=== PATIENT | male | born 1945 | race Caucasian/White ===

== ENCOUNTER 2016-10-29 00:43 | Inpatient (IN) | payer MEDICARE, BC ==
[2016-10-29] MEDS ORDERED: Furosemide 40 MG/4 ML VIAL IVPUSH ONE (01:40)
[2016-10-29] MEDS ORDERED: Sodium Chloride 0.9% 10 ML Syringe FLUSH PRN ×2 (01:40→09:23)
--- NOTE | 2016-10-29 01:45 | EDM.PDOC ---
[id number]: SOB LEAKING LEGS Time Seen by Provider: 10/29/16 01:43 Source: Reports: Patient History Limitations: Reports: No limitations - History of Present Illness INITIAL COMMENTS - FREE TEXT/NARRATIVE: Pt has noted increased sob and marked swelling and weeping in both legs the left being worse than the right. Timing/Duration: Reports: Getting worse Severity: severe Location, General: Reports: chest, abdomen, lower extremity, left, lower extremity, right Associated Symptoms: Reports: shortness of breath - Related Data Allergies/ADRs: Allergies Allergy/AdvReac Type Severity Reaction Status Date / Time UNA Inhibitors Allergy Rash Verified 10/29/16 09:26 Home Meds: Home Meds Losartan [Cozaar] 100 mg PO BID 12/09/14 [History] EPINEPHrine [Epipen 2-Merrick] 0.3 mg IM DAILY PRN 07/31/15 [History] atorvaSTATin [Lipitor] 80 mg PO BEDTIME 07/31/15 [History] Pseudoephedrine HCl [Sudafed] 30 mg PO ASDIRECTED 12/30/15 [History] Fluticasone Propionate [Flonase] 2 spray IN DAILY 10/29/16 [History] Insulin Aspart [NovoLOG] 12 unit SQ ACLUNCH 10/29/16 [History] Insulin Aspart [NovoLOG] 15 unit SQ ACDINNER 10/29/16 [History] Insulin Aspart [Novolog] 12 unit SQ ACBREAKFAST 10/29/16 [History] Insulin Detemir [Levemir] 57 unit SUBCUT BEDTIME 10/29/16 [History] Metoprolol Tartrate 25 mg PO BID 10/29/16 [History] Past Medical History HEENT History: Reports: Cataract, Impaired vision, Sinusitis Cardiovascular History: Reports: Bypass, CAD, High cholesterol, Hypertension Gastrointestinal History: Reports: Diverticulosis, GERD Musculoskeletal History: Reports: Fracture Neurological History: Reports: Headaches, chronic Endocrine/Metabolic History: Reports: Diabetes, type II - Infectious Disease History Infectious Disease History: Reports: Chicken pox - Past Surgical History HEENT Surgical History: Reports: Naso-sinus surgery, Other (see below) Other HEENT Surgeries/Procedures: diveated septum Cardiovascular Surgical History: Reports: Coronary artery bypass GI Surgical History: Reports: Colonoscopy Social & Family History - Tobacco Use Smoking Status *Q: Never Smoker Second Hand Smoke Exposure: No - Caffeine Use Caffeine Use: Reports: Coffee - Alcohol Use Days Per Week of Alcohol Use: 7 Number of Drinks Per Day: 1 Total Drinks Per Week: 7 - Recreational Drug Use Recreational Drug Use: No - Living Situation & Occupation Living situation: Reports: , with spouse ED ROS GENERAL - Review of Systems Review Of Systems: See Below Constitutional: Reports: no symptoms HEENT: Reports: No symptoms Respiratory: Reports: Shortness of Breath, Cough Cardiovascular: Reports: Other (He notes a irregular heart beat. ) Endocrine: Reports: no symptoms GI/Abdominal: Reports: No symptoms, Other ( Pt feels tight. ) : Reports: no symptoms Musculoskeletal: Reports: no symptoms Skin: Reports: other ( legs have marked swelling. They are weeoing and there are some open lesions. ) Neurological: Reports: No Symptoms Psychiatric: Reports: No symptoms ED EXAM, GENERAL - Physical Exam Exam: See Below Free Text/Narrative:: Pt has marked leg swelling and weeping. He has not had chest pain, He is quite sob with activity. Exam Limited By: No limitations General Appearance: alert, moderate distress Ears: normal TMs Nose: normal inspection Throat/Mouth: Normal inspection Head: atraumatic Neck: normal inspection Respiratory/Chest: decreased breath sounds, rales Cardiovascular: regular rate, rhythm, other (pt does have frequent ectopics but this is not new for him. ) GI/Abdominal: distended, other (Pt is not tender but his abdoman is definitely very tight. ) (Male) Exam: Deferred Rectal (Males) Exam: Deferred Back Exam: normal inspection Extremities: pedal edema, other ( They are swollen very tight and are weeping. ) Neurological: alert, oriented, normal cognition Psychiatric: normal affect Course - Vital Signs Last Recorded V/S: Last Vital Signs Temp 36.8 C 10/31/16 03:00 Pulse 69 10/31/16 03:00 Resp 16 10/31/16 03:00 BP 127/91 H 10/31/16 03:00 Pulse Ox 92 L 10/31/16 03:00 - Orders/Labs/Meds Orders: Active Orders 24 hr Category Date Time Status GLUCOSE POC LAB TO COLLECT [POC] QIDACANDBED Lab 10/31/16 07:30 Ordered GLUCOSE POC LAB TO COLLECT [POC] QIDACANDBED Lab 10/31/16 11:30 Ordered GLUCOSE POC LAB TO COLLECT [POC] QIDACANDBED Lab 10/31/16 16:30 Ordered GLUCOSE POC LAB TO COLLECT [POC] QIDACANDBED Lab 10/31/16 21:00 Ordered GLUCOSE POC LAB TO COLLECT [POC] QIDACANDBED Lab 11/01/16 07:30 Ordered GLUCOSE POC LAB TO COLLECT [POC] QIDACANDBED Lab 11/01/16 11:30 Ordered GLUCOSE POC LAB TO COLLECT [POC] QIDACANDBED Lab 11/01/16 16:30 Ordered GLUCOSE POC LAB TO COLLECT [POC] QIDACANDBED Lab 11/01/16 21:00 Ordered GLUCOSE POC LAB TO COLLECT [POC] QIDACANDBED Lab 11/02/16 07:30 Ordered GLUCOSE POC LAB TO COLLECT [POC] QIDACANDBED Lab 11/02/16 11:30 Ordered GLUCOSE POC LAB TO COLLECT [POC] QIDACANDBED Lab 11/02/16 16:30 Ordered GLUCOSE POC LAB TO COLLECT [POC] QIDACANDBED Lab 11/02/16 21:00 Ordered GLUCOSE POC LAB TO COLLECT [POC] QIDACANDBED Lab 11/03/16 07:30 Ordered GLUCOSE POC LAB TO COLLECT [POC] QIDACANDBED Lab 11/03/16 11:30 Ordered GLUCOSE POC LAB TO COLLECT [POC] QIDACANDBED Lab 11/03/16 16:30 Ordered GLUCOSE POC LAB TO COLLECT [POC] QIDACANDBED Lab 11/03/16 21:00 Ordered GLUCOSE POC LAB TO COLLECT [POC] QIDACANDBED Lab 11/04/16 07:30 Ordered GLUCOSE POC LAB TO COLLECT [POC] QIDACANDBED Lab 11/04/16 11:30 Ordered GLUCOSE POC LAB TO COLLECT [POC] QIDACANDBED Lab 11/04/16 16:30 Ordered GLUCOSE POC LAB TO COLLECT [POC] QIDACANDBED Lab 11/04/16 21:00 Ordered GLUCOSE POC LAB TO COLLECT [POC] QIDACANDBED Lab 11/05/16 07:30 Ordered GLUCOSE POC LAB TO COLLECT [POC] QIDACANDBED Lab 11/05/16 11:30 Ordered GLUCOSE POC LAB TO COLLECT [POC] QIDACANDBED Lab 11/05/16 16:30 Ordered GLUCOSE POC LAB TO COLLECT [POC] QIDACANDBED Lab 11/05/16 21:00 Ordered GLUCOSE POC LAB TO COLLECT [POC] QIDACANDBED Lab 11/06/16 07:30 Ordered GLUCOSE POC LAB TO COLLECT [POC] QIDACANDBED Lab 11/06/16 11:30 Ordered GLUCOSE POC LAB TO COLLECT [POC] QIDACANDBED Lab 11/06/16 16:30 Ordered GLUCOSE POC LAB TO COLLECT [POC] QIDACANDBED Lab 11/06/16 21:00 Ordered GLUCOSE POC LAB TO COLLECT [POC] QIDACANDBED Lab 11/07/16 07:30 Ordered GLUCOSE POC LAB TO COLLECT [POC] QIDACANDBED Lab 11/07/16 11:30 Ordered GLUCOSE POC LAB TO COLLECT [POC] QIDACANDBED Lab 11/07/16 16:30 Ordered GLUCOSE POC LAB TO COLLECT [POC] QIDACANDBED Lab 11/07/16 21:00 Ordered GLUCOSE POC LAB TO COLLECT [POC] QIDACANDBED Lab 11/08/16 07:30 Ordered GLUCOSE POC LAB TO COLLECT [POC] QIDACANDBED Lab 11/08/16 11:30 Ordered GLUCOSE POC LAB TO COLLECT [POC] QIDACANDBED Lab 11/08/16 16:30 Ordered GLUCOSE POC LAB TO COLLECT [POC] QIDACANDBED Lab 11/08/16 21:00 Ordered GLUCOSE POC LAB TO COLLECT [POC] QIDACANDBED Lab 11/09/16 07:30 Ordered Insulin Aspart [NovoLOG] Med 10/30/16 07:30 Active 12 unit SUBCUT ACBREAKFAST Medication Orders Acetaminophen (Tylenol) 650 mg PO Q4H PRN PRN Reason: Pain (Mild 1-3)/fever Last Admin: 10/31/16 06:57 Dose: 650 mg Atorvastatin Calcium (Lipitor) 80 mg PO BEDTIME [facility] Last Admin: 10/30/16 20:59 Dose: 80 mg Admin: 10/29/16 20:52 Dose: 80 mg Dextrose (Glutose 15) 15 gm PO ONETIME PRN PRN Reason: Hypoglycemia Dextrose/Water (Dextrose 50% In Water) 50 ml IV ONETIME PRN PRN Reason: Hypoglycemia Docusate Sodium (Colace) 100 mg PO BID PRN PRN Reason: Constipation Enoxaparin Sodium (Lovenox) 40 mg SUBCUT DAILY [facility] Last Admin: 10/30/16 08:06 Dose: 40 mg Admin: 10/29/16 09:49 Dose: 40 mg Fluticasone Propionate (Flonase) 0 gm RADHA DAILY [facility] Last Admin: 10/30/16 08:04 Dose: 2 spray Admin: 10/29/16 09:53 Dose: 1 spray Furosemide (Lasix) 20 mg IVPUSH Q8H [facility] Last Admin: 10/31/16 02:05 Dose: 20 mg Admin: 10/30/16 17:14 Dose: 20 mg Admin: 10/30/16 10:02 Dose: 20 mg Admin: 10/30/16 02:37 Dose: 20 mg Admin: 10/29/16 17:47 Dose: 20 mg Admin: 10/29/16 09:55 Dose: 20 mg Insulin Aspart (Novolog) 12 unit SUBCUT ACLUNCH [facility] Last Admin: 10/30/16 11:42 Dose: 12 units Admin: 10/29/16 12:03 Dose: 12 units Insulin Aspart (Novolog) 15 unit SUBCUT ACDINNER [facility] Last Admin: 10/30/16 17:11 Dose: 15 units Admin: 10/29/16 17:48 Dose: 15 units Insulin Aspart (Novolog) 12 unit SUBCUT ACBREAKFAST [facility] Last Admin: 10/30/16 08:00 Dose: 12 units Insulin Aspart (Novolog) 0 unit SUBCUT ASDIRECTED [facility] PRN Reason: Protocol Insulin Detemir (Levemir) 57 unit SUBCUT BEDTIME [facility] Last Admin: 10/30/16 20:57 Dose: 57 unit Admin: 10/29/16 20:53 Dose: 57 unit Loperamide HCl (Imodium) 4 mg PO DAILY PRN PRN Reason: LOOSE STOOL Last Admin: 10/30/16 15:28 Dose: 4 mg Losartan Potassium (Cozaar) 100 mg PO BID [facility] Last Admin: 10/30/16 20:58 Dose: 100 mg Admin: 10/30/16 08:04 Dose: 100 mg Admin: 10/29/16 20:50 Dose: 100 mg Admin: 10/29/16 09:55 Dose: 100 mg Magnesium Hydroxide (Milk Of Magnesia) 30 ml PO Q12H PRN PRN Reason: Constipation Magnesium Oxide (Magnesium Oxide) 400 mg PO BID [facility] Last Admin: 10/30/16 21:00 Dose: 400 mg Admin: 10/30/16 08:05 Dose: 400 mg Admin: 10/29/16 20:52 Dose: 400 mg Admin: 10/29/16 09:50 Dose: 400 mg Metoprolol Tartrate (Lopressor) 25 mg PO BID [facility] Last Admin: 10/30/16 20:59 Dose: 25 mg Admin: 10/30/16 08:06 Dose: 25 mg Admin: 10/29/16 20:52 Dose: 25 mg Admin: 10/29/16 09:50 Dose: 25 mg Ondansetron HCl (Zofran) 4 mg IV Q4H PRN PRN Reason: Nausea/Vomiting Oxycodone HCl (Oxycodone) 5 mg PO Q4H PRN PRN Reason: Pain (moderate 4-6) Polyethylene Glycol (Miralax) 17 gm PO DAILY PRN PRN Reason: Constipation Potassium Chloride (Klor-Con M20) 40 meq PO BID [facility] Last Admin: 10/30/16 20:59 Dose: 40 meq Admin: 10/30/16 08:05 Dose: 40 meq Admin: 10/29/16 20:51 Dose: 40 meq Admin: 10/29/16 11:19 Dose: 40 meq Sodium Chloride (Saline Flush) 10 ml FLUSH ASDIRECTED PRN PRN Reason: Keep Vein Open Last Admin: 10/31/16 02:05 Dose: 10 ml Labs: Laboratory Tests 10/29/16 10/29/16 10/29/16 Range/Units 01:37 01:37 01:38 WBC 6.9 (4.5-11.0) K/uL RBC 5.12 (4.30-5.90) M/uL Hgb 13.9 (12.0-15.0) g/dL Hct 43.8 (40.0-54.0) % MCV 86 (80-98) fL MCH 27 (27-31) pg MCHC 32 (32-36) % Plt Count 183 (150-400) K/uL Neut % (Auto) 66 (36-66) % Lymph % (Auto) 18 L (24-44) % Kendall % (Auto) 12 H (2-6) % Eos % (Auto) 3 (2-4) % Baso % (Auto) 1 (0-1) % Sodium 146 (140-148) mmol/L Potassium 3.8 (3.6-5.2) mmol/L Chloride 110 H (100-108) mmol/L Carbon Dioxide 29 (21-32) mmol/L Anion Gap 10.8 (5.0-14.0) mmol/L BUN 22 H (7-18) mg/dL Creatinine 1.2 (0.8-1.3) mg/dL Est Cr Clr Drug Dosing 55.42 mL/min Estimated GFR (MDRD) 60 (>60) Glucose 83 (74-106) mg/dL Calcium 8.1 L (8.5-10.1) mg/dL Total Bilirubin 1.7 H (0.2-1.0) mg/dL AST 52 H D (15-37) U/L ALT 51 (12-78) U/L Alkaline Phosphatase 93 (46-116) U/L Creatine Kinase 148 (39-308) U/L [id number] Pept 2531 H (5-125) pg/mL Total Protein 6.8 (6.4-8.2) g/dL Albumin 2.6 L (3.4-5.0) g/dL Globulin 4.2 H (2.3-3.5) g/dL Albumin/Globulin Ratio 0.6 L (1.2-2.2) Urine Color Urine Appearance Urine pH (4.5-8.0) Ur Specific Alfred (1.008-1.030) Urine Protein (NEGATIVE) mg/dL Urine Glucose (UA) (NEGATIVE) mg/dL Urine Ketones (NEGATIVE) mg/dL Urine Occult Blood (NEGATIVE) Urine Nitrite (NEGAITVE) Urine Bilirubin (NEGATIVE) Urine Urobilinogen (NORMAL) mg/dL Ur Leukocyte Esterase (NEGATIVE) Urine RBC (0-5) Urine WBC (0-5) Ur Epithelial Cells Amorphous Sediment Urine Bacteria Urine Mucus 10/29/16 10/29/16 Range/Units 02:22 06:22 WBC (4.5-11.0) K/uL RBC (4.30-5.90) M/uL Hgb (12.0-15.0) g/dL Hct (40.0-54.0) % MCV (80-98) fL MCH (27-31) pg MCHC (32-36) % Plt Count (150-400) K/uL Neut % (Auto) (36-66) % Lymph % (Auto) (24-44) % Kendall % (Auto) (2-6) % Eos % (Auto) (2-4) % Baso % (Auto) (0-1) % Sodium (140-148) mmol/L Potassium 3.4 L (3.6-5.2) mmol/L Chloride (100-108) mmol/L Carbon Dioxide (21-32) mmol/L Anion Gap (5.0-14.0) mmol/L BUN (7-18) mg/dL Creatinine (0.8-1.3) mg/dL Est Cr Clr Drug Dosing mL/min Estimated GFR (MDRD) (>60) Glucose (74-106) mg/dL Calcium (8.5-10.1) mg/dL Total Bilirubin (0.2-1.0) mg/dL AST (15-37) U/L ALT (12-78) U/L Alkaline Phosphatase (46-116) U/L Creatine Kinase (39-308) U/L [id number] Pept (5-125) pg/mL Total Protein (6.4-8.2) g/dL Albumin (3.4-5.0) g/dL Globulin (2.3-3.5) g/dL Albumin/Globulin Ratio (1.2-2.2) Urine Color Yellow Urine Appearance Clear Urine pH 7.0 (4.5-8.0) Ur Specific Alfred 1.010 (1.008-1.030) Urine Protein Negative (NEGATIVE) mg/dL Urine Glucose (UA) Normal (NEGATIVE) mg/dL Urine Ketones Negative (NEGATIVE) mg/dL Urine Occult Blood Negative (NEGATIVE) Urine Nitrite Negative (NEGAITVE) Urine Bilirubin Negative (NEGATIVE) Urine Urobilinogen Normal (NORMAL) mg/dL Ur Leukocyte Esterase Negative (NEGATIVE) Urine RBC 0-5 (0-5) Urine WBC 0-5 (0-5) Ur Epithelial Cells Not seen Amorphous Sediment Not seen Urine Bacteria Rare Urine Mucus Not seen Meds: Medications Generic Name Dose Route Start Last Admin Trade Name Freq PRN Reason Stop Dose Admin Acetaminophen 650 mg 10/29/16 09:23 10/31/16 06:57 Tylenol PO 650 mg Q4H PRN Administration Pain (Mild 1-3)/fever Atorvastatin Calcium 80 mg 10/29/16 21:00 10/30/16 20:59 Lipitor PO 80 mg BEDTIME [facility] Administration Dextrose 15 gm 10/29/16 09:23 Glutose 15 PO ONETIME PRN Hypoglycemia Dextrose/Water 50 ml 10/29/16 09:23 Dextrose 50% In Water IV ONETIME PRN Hypoglycemia Docusate Sodium 100 mg 10/29/16 09:23 Colace PO BID PRN Constipation Enoxaparin Sodium 40 mg 10/29/16 10:00 10/30/16 08:06 Lovenox SUBCUT 40 mg DAILY [facility] Administration Fluticasone Propionate 0 gm 10/29/16 09:23 10/30/16 08:04 Flonase RADHA 2 spray DAILY [facility] Administration Furosemide 20 mg 10/29/16 10:00 10/31/16 02:05 Lasix IVPUSH 20 mg Q8H [facility] Administration Insulin Aspart 12 unit 10/29/16 11:00 10/30/16 11:42 Novolog SUBCUT 12 units ACLUNCH [facility] Administration Insulin Aspart 15 unit 10/29/16 16:00 10/30/16 17:11 Novolog SUBCUT 15 units ACDINNER [facility] Administration Insulin Aspart 12 unit 10/30/16 07:30 10/30/16 08:00 Novolog SUBCUT 12 units ACBREAKFAST [facility] Administration Insulin Aspart 0 unit 10/29/16 09:23 Novolog SUBCUT ASDIRECTED [facility] Protocol Insulin Detemir 57 unit 10/29/16 21:00 10/30/16 20:57 Levemir SUBCUT 57 unit BEDTIME [facility] Administration Loperamide HCl 4 mg 10/30/16 15:00 10/30/16 15:28 Imodium PO 4 mg DAILY PRN Administration LOOSE STOOL Losartan Potassium 100 mg 10/29/16 09:23 10/30/16 20:58 Cozaar PO 100 mg BID [facility] Administration Magnesium Hydroxide 30 ml 10/29/16 09:23 Milk Of Magnesia PO Q12H PRN Constipation Magnesium Oxide 400 mg 10/29/16 09:23 10/30/16 21:00 Magnesium Oxide PO 400 mg BID [facility] Administration Metoprolol Tartrate 25 mg 10/29/16 10:00 10/30/16 20:59 Lopressor PO 25 mg BID [facility] Administration Ondansetron HCl 4 mg 10/29/16 09:23 Zofran IV Q4H PRN Nausea/Vomiting Oxycodone HCl 5 mg 10/29/16 09:23 Oxycodone PO Q4H PRN Pain (moderate 4-6) Polyethylene Glycol 17 gm 10/29/16 09:23 Miralax PO DAILY PRN Constipation Potassium Chloride 40 meq 10/29/16 09:23 10/30/16 20:59 Klor-Con M20 PO 40 meq BID [facility] Administration Sodium Chloride 10 ml 10/29/16 09:23 10/31/16 02:05 Saline Flush FLUSH 10 ml ASDIRECTED PRN Administration Keep Vein Open Discontinued Medications Generic Name Dose Route Start Last Admin Trade Name Freq PRN Reason Stop Dose Admin Furosemide 60 mg 10/29/16 01:40 10/29/16 01:49 Lasix IVPUSH 10/29/16 01:41 60 mg ONETIME ONE Administration Potassium Chloride 20 meq 10/29/16 06:10 10/29/16 06:18 Klor-Con M20 PO 10/29/16 06:11 20 meq ONETIME ONE Administration Potassium Chloride 40 meq 10/29/16 09:30 10/29/16 09:51 Klor-Con M20 PO 10/29/16 09:31 40 meq ONETIME ONE Administration Sodium Chloride 10 ml 10/29/16 01:40 10/29/16 01:56 Saline Flush FLUSH 10 ml ASDIRECTED PRN Administration Keep Vein Open - Re-Assessments/Exams Free Text/Narrative Re-Assessment/Exam: 10/29/16 02:49 pt has an elevated bnp . His liver enzymes are up. chest xray show a markedly enlarged heart in chf. 10/29/16 06:36 pt was given 60 mg of lasix and has put out 4600 cc of fluid. His k is being checked at this time and he was given kcl 20meq po. Departure - Departure Time of Disposition: 06:37 Disposition: Admitted As Inpatient 67 Condition: fair Clinical Impression: CHF (congestive heart failure), Cardiomegaly, Stasis dermatitis of both legs
[2016-10-29] MEDS ORDERED: Potassium Chloride 20 MEQ Tab.ER PO ONE ×2 (06:10→09:30)
--- NOTE | 2016-10-29 08:55 | CR ---
Chest 1V Frontal HISTORY: sob COMPARISON: 01/14/2011 FINDINGS: Portable chest, 0202 hours. There are possible infiltrates and consolidation lingular segment left upper lobe partially silhouet ting the left heart border. Remainder the chest is clear. There is generalized cardiomegaly. Heart s ize appears increased in the interval. Old median sternotomy changes and mediastinal surgical clips are again noted. Superior pulmonary vasculature is borderline prominent. No pleural fluid or interst itial edema is seen. Remainder the chest is stable. IMPRESSION: 1. Possible infiltrate left lingula partially silhouetting the left heart border. Recommend clinical correlation for possible pneumonia. 2. Cardiomegaly with borderline vascular redistribution. I cannot completely exclude early CHF. No i nterstitial edema or pleural fluid can be seen. 3. Old median sternotomy changes are noted.
[2016-10-29] MEDS ORDERED: Docusate Sodium 100 MG Cap PO PRN (09:23)
[2016-10-29] MEDS ORDERED: Insulin Aspart 100 Units/ML 3 ML Pen SUBCUT SCH (09:23)
[2016-10-29] MEDS ORDERED: Polyethylene Glycol 3350 Powder 17 GM Packet PO PRN (09:23)
[2016-10-29] MEDS ORDERED: oxyCODONE 5 MG Tab PO PRN (09:23)
[2016-10-29] MEDS ORDERED: Magnesium Hydroxide 400 MG/5 ML Susp 30 ML Cup PO PRN (09:23)
[2016-10-29] MEDS ORDERED: 50% Dextrose in Water 50 ML Syringe IV PRN (09:23)
[2016-10-29] MEDS ORDERED: Acetaminophen 325 MG Tab PO PRN (09:23)
[2016-10-29] MEDS ORDERED: Metoprolol Succinate 50 MG Tab.ER PO SCH (09:23)
[2016-10-29] MEDS ORDERED: Ondansetron 4 MG/2 ML SDV IV PRN (09:23)
[2016-10-29] MEDS ORDERED: Glucose Gel 15 GM in 37.5 GM Tube PO PRN (09:23)
[2016-10-29] MEDS: Enoxaparin 40 MG/0.4 ML Syringe SUBCUT SCH (09:49)
[2016-10-29] MEDS: Magnesium Oxide 400 MG Tab PO SCH ×2 (09:50→20:52)
[2016-10-29] MEDS: Metoprolol Tartrate 25 MG Tab PO SCH ×2 (09:50→20:52)
[2016-10-29] MEDS: Fluticasone Propionate Nasal Spray 16 GM Bottle NAS SCH (09:53)
[2016-10-29] MEDS: Losartan 50 MG Tab PO SCH ×2 (09:55→20:50)
[2016-10-29] MEDS: Furosemide 20 MG/2 ML VIAL IVPUSH SCH ×2 (09:55→17:47)
[2016-10-29] MEDS: Potassium Chloride 20 MEQ Tab.ER PO SCH ×2 (11:19→20:51)
[2016-10-29] MEDS: Insulin Aspart 100 Units/ML 3 ML Pen SUBCUT SCH ×2 (12:03→17:48)
--- NOTE | 2016-10-29 12:28 | PCM.HP ---
H&P History of Present Illness - General Date of Service: 10/29/16 Source of Information: Patient, Family, Old records, Provider, RN notes reviewed History Limitations: Reports: No limitations - History of Present Illness Initial Comments - Free Text/Narative: Mr. Gama is a 71-year-old gentleman who is admitted through the emergency department for further evaluation and management of severe anasarca. He reports a progressive development of peripheral edema over the past 2 months, extending up into his lower back and lower abdominal wall. He estimates that is weight is up 40-50 pounds from baseline. He does have a known history of coronary artery disease, but denies a history of congestive heart failure. Past week has become progressively more short of breath and on evaluation earlier this morning in the emergency department was found to have evidence of pulmonary edema on chest x-ray. Laboratory studies show evidence of chronic kidney disease stage III. - Related Data Allergies/Adverse Reactions: Allergies Allergy/AdvReac Type Severity Reaction Status Date / Time UNA Inhibitors Allergy Rash Verified 10/29/16 09:26 Home Medications: Home Meds Losartan [Cozaar] 100 mg PO BID 12/09/14 [History] EPINEPHrine [Epipen 2-Merrick] 0.3 mg IM DAILY PRN 07/31/15 [History] atorvaSTATin [Lipitor] 80 mg PO BEDTIME 07/31/15 [History] Pseudoephedrine HCl [Sudafed] 30 mg PO ASDIRECTED 12/30/15 [History] Fluticasone Propionate [Flonase] 2 spray IN DAILY 10/29/16 [History] Insulin Aspart [NovoLOG] 12 unit SQ ACLUNCH 10/29/16 [History] Insulin Aspart [NovoLOG] 15 unit SQ ACDINNER 10/29/16 [History] Insulin Aspart [Novolog] 12 unit SQ ACBREAKFAST 10/29/16 [History] Insulin Detemir [Levemir] 57 unit SUBCUT BEDTIME 10/29/16 [History] Metoprolol Tartrate 25 mg PO BID 10/29/16 [History] Past Medical History HEENT History: Reports: Cataract, Impaired vision, Sinusitis Cardiovascular History: Reports: Bypass, CAD, High cholesterol, Hypertension Gastrointestinal History: Reports: Diverticulosis, GERD Musculoskeletal History: Reports: Fracture Neurological History: Reports: Headaches, chronic Endocrine/Metabolic History: Reports: Diabetes, type II - Infectious Disease History Infectious Disease History: Reports: Chicken pox - Past Surgical History HEENT Surgical History: Reports: Naso-sinus surgery, Other (see below) Other HEENT Surgeries/Procedures: diveated septum Cardiovascular Surgical History: Reports: Coronary artery bypass GI Surgical History: Reports: Colonoscopy Social & Family History - Tobacco Use Smoking Status *Q: Never Smoker Second Hand Smoke Exposure: No - Caffeine Use Caffeine Use: Reports: Coffee, Soda - Alcohol Use Days Per Week of Alcohol Use: 1 Number of Drinks Per Day: 1 Total Drinks Per Week: 1 - Recreational Drug Use Recreational Drug Use: No - Living Situation & Occupation Living situation: Reports: , with spouse H&P Review of Systems - Review of Systems: Review Of Systems: See Below General: Reports: weakness. Denies: fever, chills HEENT: Reports: no symptoms Pulmonary: Reports: Shortness of Breath. Denies: Wheezing, Pleuritic Chest Pain , Cough, Sputum, Hemoptysis Cardiovascular: Reports: dyspnea on exertion, orthopnea, PND, edema. Denies: chest pain, palpitations, syncope Gastrointestinal: Reports: No symptoms Genitourinary: Reports: no symptoms Musculoskeletal: Reports: no symptoms Skin: Reports: no symptoms Psychiatric: Reports: no symptoms Neurological: Reports: No Symptoms Hematologic/Lymphatic: Reports: no symptoms Immunologic: Reports: no symptoms Exam - Exam Exam: See Below - Vital Signs Vital Signs: Last Vital Signs Temp 98.2 F 10/29/16 09:23 Pulse 73 10/29/16 09:50 Resp 18 10/29/16 09:23 BP 153/82 H 10/29/16 09:55 Pulse Ox 93 L 10/29/16 09:23 Weight: 259 lb 11.272 oz - Exam Quality Assessment: supplemental oxygen, DVT prophylaxis HEENT: Conjunctiva clear, EOMI, Hearing intact, Mucosa moist & pink, Nares patent, Normal nasal septum, Posterior pharynx clear, Pupils equal, Pupils reactive Neck: supple, trachea midline, +2 carotid pulse wo bruit Lungs: Clear to auscultation, Normal respiratory effort Cardiovascular: regular rate, regular rhythm, normal S1, normal S2. No: irregular rhythm, bradycardia, tachycardia, systolic murmur, diastolic murmur Abdomen: normal bowel sounds, soft Back Exam: normal inspection, full range of motion Extremities: edema Skin: warm, dry, intact Neurological: cranial nerves intact, strength equal bilateral, normal speech, normal tone, focal deficit. No: sensation intact Neuro Extensive - Mental Status: alert, oriented x3, normal mood/affect, normal cognition, memory intact - Patient Data Result Diagrams: 10/29/16 01:37 10/29/16 17:58 *Q Meaningful Use (ADM) - VTE *Q VTE Criteria *Q: - VTE Risk Assess *Q Each Risk Factor Represents 1 Point: Obesity (BMI greater than 30) Total Score 1 Point Risk Factors: 1 Each Risk Factor Represents 2 Points: Age 60 - 74 Years Total Score 2 Point Risk Factors: 2 Each Risk Factor Represents 3 Points: None Total Score 3 Point Risk Factors: 0 Each Risk Factor Represents 5 Points: None Total Score 5 Point Risk Factors: 0 Venous Thromboembolism Risk Factor Score *Q: 3 - Stroke *Q Stroke Criteria *Q: - AMI *Q AMI Criteria *Q: Problem List Initiated/Reviewed/Updated: Yes Orders Last 24hrs: Active Orders 24 hr Category Date Time Status Metoprolol Tartrate [Lopressor] Med 10/29/16 10:00 Active 25 mg PO BID Medication Orders Acetaminophen (Tylenol) 650 mg PO Q4H PRN PRN Reason: Pain (Mild 1-3)/fever Atorvastatin Calcium (Lipitor) 80 mg PO BEDTIME [facility] Dextrose (Glutose 15) 15 gm PO ONETIME PRN PRN Reason: Hypoglycemia Dextrose/Water (Dextrose 50% In Water) 50 ml IV ONETIME PRN PRN Reason: Hypoglycemia Docusate Sodium (Colace) 100 mg PO BID PRN PRN Reason: Constipation Enoxaparin Sodium (Lovenox) 40 mg SUBCUT DAILY [facility] Last Admin: 10/29/16 09:49 Dose: 40 mg Fluticasone Propionate (Flonase) 0 gm RADHA DAILY [facility] Last Admin: 10/29/16 09:53 Dose: 1 spray Furosemide (Lasix) 20 mg IVPUSH Q8H [facility] Last Admin: 10/29/16 09:55 Dose: 20 mg Insulin Aspart (Novolog) 12 unit SUBCUT ACLUNCH [facility] Last Admin: 10/29/16 12:03 Dose: 12 units Insulin Aspart (Novolog) 15 unit SUBCUT ACDINNER [facility] Insulin Aspart (Novolog) 12 unit SUBCUT ACBREAKFAST [facility] Insulin Aspart (Novolog) 0 unit SUBCUT ASDIRECTED [facility] PRN Reason: Protocol Insulin Detemir (Levemir) 57 unit SUBCUT BEDTIME [facility] Losartan Potassium (Cozaar) 100 mg PO BID [facility] Last Admin: 10/29/16 09:55 Dose: 100 mg Magnesium Hydroxide (Milk Of Magnesia) 30 ml PO Q12H PRN PRN Reason: Constipation Magnesium Oxide (Magnesium Oxide) 400 mg PO BID [facility] Last Admin: 10/29/16 09:50 Dose: 400 mg Metoprolol Tartrate (Lopressor) 25 mg PO BID [facility] Last Admin: 10/29/16 09:50 Dose: 25 mg Ondansetron HCl (Zofran) 4 mg IV Q4H PRN PRN Reason: Nausea/Vomiting Oxycodone HCl (Oxycodone) 5 mg PO Q4H PRN PRN Reason: Pain (moderate 4-6) Polyethylene Glycol (Miralax) 17 gm PO DAILY PRN PRN Reason: Constipation Potassium Chloride (Klor-Con M20) 40 meq PO BID [facility] Last Admin: 10/29/16 11:19 Dose: 40 meq Sodium Chloride (Saline Flush) 10 ml FLUSH ASDIRECTED PRN PRN Reason: Keep Vein Open Assessment/Plan Comment:: ASSESSMENT AND PLAN ANASARCA-progressive increase in peripheral edema over the past 2 months, now over the past week has developed symptoms consistent with pulmonary edema and possible congestive heart failure. -2 g sodium diet -Lasix 20 mg IV every 8 hours -Keep legs elevated while sitting -Monitor electrolytes and renal function closely -Echocardiogram to assess left ventricular function TYPE 2 DIABETES MELLITUS -4 times a day glucometers -Low-dose sliding scale NovoLog -Continue outpatient insulin regimen MAINTENANCE ISSUES -DVT prophylaxis; Lovenox 40 mg subcutaneous daily -GI prophylaxis; continue outpatient therapy -Card catheter; not indicated -Nutrition; 2 g sodium and consistent carb diet -Nicotine dependence; not required CODE STATUS-FULL CODE ADMISSION STATUS-patient will be admitted to inpatient status, expect at least a 2 night hospital stay for evaluation and management of problems as outlined above. At the time of this admission I do not reasonably expected evaluation and management of this problem will require more than a 96 hour hospital stay. DISPOSITION-anticipate discharge to home after the hospital stay. PRIMARY CARE PROVIDER-
[2016-10-29] MEDS: atorvaSTATin 20 MG Tab PO SCH (20:52)
[2016-10-29] MEDS: Insulin Detemir 100 Units/ML 3 ML Pen SUBCUT SCH (20:53)
[2016-10-30] MEDS: Furosemide 20 MG/2 ML VIAL IVPUSH SCH ×3 (02:37→17:14)
[2016-10-30] MEDS: Insulin Aspart 100 Units/ML 3 ML Pen SUBCUT SCH ×3 (08:00→17:11)
[2016-10-30] MEDS: Fluticasone Propionate Nasal Spray 16 GM Bottle NAS SCH (08:04)
[2016-10-30] MEDS: Losartan 50 MG Tab PO SCH ×2 (08:04→20:58)
[2016-10-30] MEDS: Magnesium Oxide 400 MG Tab PO SCH ×2 (08:05→21:00)
[2016-10-30] MEDS: Potassium Chloride 20 MEQ Tab.ER PO SCH ×2 (08:05→20:59)
[2016-10-30] MEDS: Metoprolol Tartrate 25 MG Tab PO SCH ×2 (08:06→20:59)
[2016-10-30] MEDS: Enoxaparin 40 MG/0.4 ML Syringe SUBCUT SCH (08:06)
--- NOTE | 2016-10-30 12:02 | PCM.PN ---
- General Info Date of Service: 10/30/16 Functional Status: Reports: tolerating diet, ambulating, urinating - Review of Systems General: Reports: No Symptoms Pulmonary: Reports: shortness of breath. Denies: pleuritic chest pain, cough, sputum, hemoptysis Cardiovascular: Reports: Dyspnea on Exertion, Edema. Denies: Chest Pain, Palpitations, Orthopnea, PND Gastrointestinal: Reports: No symptoms Genitourinary: Reports: no symptoms Systems Review Comment:: This patient has done very well since admission, diuresis has been excellent and his edema as well as shortness of breath have significantly improved. Vital signs have been stable and he has remained afebrile. - Patient Data Vitals - most recent: Last Vital Signs Temp 98.9 F 10/30/16 11:02 Pulse 74 10/30/16 11:02 Resp 18 10/30/16 11:02 BP 148/74 H 10/30/16 11:02 Pulse Ox 92 L 10/30/16 11:02 Weight - most recent: 252 lb 8 oz I&O - last 24 hours: Intake & Output 10/29/16 10/30/16 10/30/16 22:59 06:59 14:59 Intake Total 360 500 Output Total 1500 2650 750 Balance -1140 -2650 -250 Lab Results last 24 hrs: Laboratory Results - last 24 hr 10/29/16 10/30/16 10/30/16 Range/Units 17:58 05:01 05:02 WBC 7.2 (4.5-11.0) K/uL RBC 5.65 (4.30-5.90) M/uL Hgb 15.2 H (12.0-15.0) g/dL Hct 47.3 (40.0-54.0) % MCV 84 (80-98) fL MCH 27 (27-31) pg MCHC 32 (32-36) % Plt Count 204 (150-400) K/uL Neut % (Auto) 63 (36-66) % Lymph % (Auto) 18 L (24-44) % [place] % (Auto) 15 H (2-6) % Eos % (Auto) 4 (2-4) % Baso % (Auto) 0 (0-1) % Sodium 144 143 (140-148) mmol/L Potassium 4.7 4.0 (3.6-5.2) mmol/L Chloride 108 106 (100-108) mmol/L Carbon Dioxide 31 30 (21-32) mmol/L Anion Gap 4.9 L 7.3 (5.0-14.0) mmol/L BUN 27 H 24 H (7-18) mg/dL Creatinine 1.4 H 1.3 (0.8-1.3) mg/dL Est Cr Clr Drug Dosing 47.50 51.15 mL/min Estimated GFR (MDRD) 50 L 55 L (>60) Glucose 176 H 95 (74-106) mg/dL Calcium 8.2 L 8.4 L (8.5-10.1) mg/dL Magnesium 1.9 2.0 (1.8-2.4) mg/dL Med Orders - Current: Current Medications Acetaminophen (Tylenol) 650 mg PO Q4H PRN PRN Reason: Pain (Mild 1-3)/fever Atorvastatin Calcium (Lipitor) 80 mg PO BEDTIME [facility] Last Admin: 10/29/16 20:52 Dose: 80 mg Dextrose (Glutose 15) 15 gm PO ONETIME PRN PRN Reason: Hypoglycemia Dextrose/Water (Dextrose 50% In Water) 50 ml IV ONETIME PRN PRN Reason: Hypoglycemia Docusate Sodium (Colace) 100 mg PO BID PRN PRN Reason: Constipation Enoxaparin Sodium (Lovenox) 40 mg SUBCUT DAILY [facility] Last Admin: 10/30/16 08:06 Dose: 40 mg Fluticasone Propionate (Flonase) 0 gm RADHA DAILY [facility] Last Admin: 10/30/16 08:04 Dose: 2 spray Furosemide (Lasix) 20 mg IVPUSH Q8H [facility] Last Admin: 10/30/16 10:02 Dose: 20 mg Insulin Aspart (Novolog) 12 unit SUBCUT ACLUNCH [facility] Last Admin: 10/30/16 11:42 Dose: 12 units Insulin Aspart (Novolog) 15 unit SUBCUT ACDINNER [facility] Last Admin: 10/29/16 17:48 Dose: 15 units Insulin Aspart (Novolog) 12 unit SUBCUT ACBREAKFAST [facility] Last Admin: 10/30/16 08:00 Dose: 12 units Insulin Aspart (Novolog) 0 unit SUBCUT ASDIRECTED [facility] PRN Reason: Protocol Insulin Detemir (Levemir) 57 unit SUBCUT BEDTIME [facility] Last Admin: 10/29/16 20:53 Dose: 57 unit Losartan Potassium (Cozaar) 100 mg PO BID [facility] Last Admin: 10/30/16 08:04 Dose: 100 mg Magnesium Hydroxide (Milk Of Magnesia) 30 ml PO Q12H PRN PRN Reason: Constipation Magnesium Oxide (Magnesium Oxide) 400 mg PO BID [facility] Last Admin: 10/30/16 08:05 Dose: 400 mg Metoprolol Tartrate (Lopressor) 25 mg PO BID [facility] Last Admin: 10/30/16 08:06 Dose: 25 mg Ondansetron HCl (Zofran) 4 mg IV Q4H PRN PRN Reason: Nausea/Vomiting Oxycodone HCl (Oxycodone) 5 mg PO Q4H PRN PRN Reason: Pain (moderate 4-6) Polyethylene Glycol (Miralax) 17 gm PO DAILY PRN PRN Reason: Constipation Potassium Chloride (Klor-Con M20) 40 meq PO BID [facility] Last Admin: 10/30/16 08:05 Dose: 40 meq Sodium Chloride (Saline Flush) 10 ml FLUSH ASDIRECTED PRN PRN Reason: Keep Vein Open Discontinued Medications Furosemide (Lasix) 60 mg IVPUSH ONETIME ONE Stop: 10/29/16 01:41 Last Admin: 10/29/16 01:49 Dose: 60 mg Potassium Chloride (Klor-Con M20) 20 meq PO ONETIME ONE Stop: 10/29/16 06:11 Last Admin: 10/29/16 06:18 Dose: 20 meq Potassium Chloride (Klor-Con M20) 40 meq PO ONETIME ONE Stop: 10/29/16 09:31 Last Admin: 10/29/16 09:51 Dose: 40 meq Sodium Chloride (Saline Flush) 10 ml FLUSH ASDIRECTED PRN PRN Reason: Keep Vein Open Last Admin: 10/29/16 01:56 Dose: 10 ml - Exam Quality Assessment: DVT prophylaxis General: alert, oriented, cooperative, no acute distress Lungs: Clear to auscultation, Normal respiratory effort Cardiovascular: Regular Rate, Regular Rhythm, No Murmurs Abdomen: bowel sounds present, soft, no tenderness, no distension Extremities: edema Skin: warm, dry, intact - Problem List Review Problem List Initiated/Reviewed/Updated: Yes - My Orders Last 24 Hours: My Active Orders 10/30/16 04:42 Blood Glucose Check, Bedside [RC] ONETIME 04/06/17 05:00 BASIC METABOLIC PANEL,BMP [CHEM] Timed MAGNESIUM [CHEM] Timed 10/31/16 08:00 Echo Comp wo Cont [US] Urgent - Plan Plan:: ASSESSMENT AND PLAN ANASARCA-marked improvement in peripheral edema over the past 24 hours since admission. Shortness of breath as well as PND and orthopnea have essentially resolved. Edema in the lower abdominal wall as well as thighs is significantly improved from admission. -2 g sodium diet -Lasix 20 mg IV every 8 hours -Keep legs elevated while sitting -Monitor electrolytes and renal function closely -Echocardiogram to assess left ventricular function TYPE 2 DIABETES MELLITUS -4 times a day glucometers -Low-dose sliding scale NovoLog -Continue outpatient insulin regimen MAINTENANCE ISSUES -DVT prophylaxis; Lovenox 40 mg subcutaneous daily -GI prophylaxis; continue outpatient therapy -Card catheter; not indicated -Nutrition; 2 g sodium and consistent carb diet -Nicotine dependence; not required CODE STATUS-FULL CODE ADMISSION STATUS-patient will be admitted to inpatient status, expect at least a 2 night hospital stay for evaluation and management of problems as outlined above. At the time of this admission I do not reasonably expected evaluation and management of this problem will require more than a 96 hour hospital stay. DISPOSITION-anticipate discharge to home tomorrow PRIMARY CARE PROVIDER-
[2016-10-30] MEDS ORDERED: Loperamide 2 MG Cap PO PRN (15:00)
[2016-10-30] MEDS: Insulin Detemir 100 Units/ML 3 ML Pen SUBCUT SCH (20:57)
[2016-10-30] MEDS: atorvaSTATin 20 MG Tab PO SCH (20:59)
[2016-10-31] MEDS: Furosemide 20 MG/2 ML VIAL IVPUSH SCH ×2 (02:05→10:18)
[2016-10-31] MEDS: Fluticasone Propionate Nasal Spray 16 GM Bottle NAS SCH (08:26)
[2016-10-31] MEDS: Magnesium Oxide 400 MG Tab PO SCH (08:27)
[2016-10-31] MEDS: Potassium Chloride 20 MEQ Tab.ER PO SCH (08:27)
[2016-10-31] MEDS: Enoxaparin 40 MG/0.4 ML Syringe SUBCUT SCH (08:27)
[2016-10-31] MEDS: Metoprolol Tartrate 25 MG Tab PO SCH (08:28)
[2016-10-31] MEDS: Insulin Aspart 100 Units/ML 3 ML Pen SUBCUT SCH ×2 (08:30→11:35)
[2016-10-31] MEDS: Losartan 50 MG Tab PO SCH (08:30)
[2016-10-31 11:21] VITALS: BP 113/85
--- NOTE | 2016-10-31 11:43 | PCM.DCSUM1 ---
Discharge Summary - Hospital Course Brief History: This patient is a 71-year-old gentleman who is admitted through the emergency department with severe peripheral edema and pulmonary edema, secondary to congestive heart failure and chronic kidney disease stage III. - Discharge Data Discharge Date: 10/31/16 Discharge Disposition: Home, Self-Care 01 Condition: Fair - Discharge Diagnosis/Problem(s) (1) Anasarca SNOMED Code(s): 421448461, 492792766 ICD Code: R60.1 - GENERALIZED EDEMA Status: Acute Current Visit: Yes (2) Type 2 diabetes mellitus SNOMED Code(s): 18066344 ICD Code: E11.9 - TYPE 2 DIABETES MELLITUS WITHOUT COMPLICATIONS Status: Acute Current Visit: Yes (3) CKD (chronic kidney disease) stage 3, GFR 30-59 ml/min SNOMED Code(s): 370472998 ICD Code: N18.3 - CHRONIC KIDNEY DISEASE, STAGE 3 (MODERATE) Status: Acute Current Visit: Yes (4) Stasis dermatitis of both legs SNOMED Code(s): 17211658 ICD Code: I87.2 - VENOUS INSUFFICIENCY (CHRONIC) (PERIPHERAL) Status: Acute Current Visit: Yes (5) CHF (congestive heart failure) SNOMED Code(s): 66426702 ICD Code: I50.9 - HEART FAILURE, UNSPECIFIED Status: Acute Current Visit : Yes Qualifiers: Congestive heart failure type: systolic Congestive heart failure chronicity : acute on chronic Qualified Code(s): I50.23 - Acute on chronic systolic ( congestive) heart failure - Patient Summary/Data Hospital Course: This patient is a 71-year-old gentleman who presented to the emergency department because of symptoms of increased shortness of breath as well as severe peripheral edema. He reports that he been developing peripheral edema over the past 2 months, at that time he presented for evaluation he had edema extending into both thighs as well as buttocks and lower abdominal wall. For the week prior to admission he developed increased shortness of breath with activity as well as PND and orthopnea. He has a known history of coronary artery disease. In the emergency department was given IV Lasix and had excellent diuresis. After admission he was placed on IV Lasix 20 mg 3 times daily. With use of the IV Lasix he had an excellent diuresis and over the 2-1/ 2 days of his hospital stay he diuresed approximately 12 L and had a 20 pound decrease in weight. His shortness of breath and edema improved significantly, but the time of discharge he still had edema but it was much improved from admission. I recommended that he stay at least one additional day or 2 for further diuresis which he refused, he felt he had to get home to take care of his who has chronic illness. Electrolytes and renal function were monitored closely throughout his hospital stay and remained stable up until the time of discharge. He was treated with insulin for management of his type 2 diabetes mellitus and we did monitored 4 times a day glucometers during hospital stay. Echocardiogram was obtained prior to discharge and showed decreased left ventricular function with estimated ejection fraction in the range of 35-40%. There was right ventricular enlargement as well as left atrial enlargement. He was instructed on the importance of a 2 g sodium diet and was seen by the dietitian to review a low-sodium diet. Activity will be as tolerated and he will resume his diabetic diet in addition to the low-sodium component. Followup appointment will be scheduled with his primary care provider for November 04, BMP will be obtained at the time of followup appointment. - Patient Instructions Diet: Low Sodium, Diabetic Diet Activity: As Tolerated Other/Special Instructions: Please schedule a followup appointment with primary care provider for November 04. BMP should be obtained at the time of followup appointment. - Discharge Plan Prescriptions/Med Rec: Furosemide 40 mg PO BID #60 tablet Magnesium Oxide 400 mg PO BID #60 tablet Potassium Chloride [Klor-Con M20] 40 meq PO BID #120 tab.er Home Medications: Home Meds Losartan [Cozaar] 100 mg PO BID 12/09/14 [History] EPINEPHrine [Epipen 2-Merrick] 0.3 mg IM DAILY PRN 07/31/15 [History] atorvaSTATin [Lipitor] 80 mg PO BEDTIME 07/31/15 [History] Pseudoephedrine HCl [Sudafed] 30 mg PO ASDIRECTED 12/30/15 [History] Fluticasone Propionate [Flonase] 2 spray IN DAILY 10/29/16 [History] Insulin Aspart [NovoLOG] 12 unit SQ ACLUNCH 10/29/16 [History] Insulin Aspart [NovoLOG] 15 unit SQ ACDINNER 10/29/16 [History] Insulin Aspart [Novolog Flexpen] 12 unit SQ ACBREAKFAST 10/29/16 [History] Insulin Detemir [Levemir] 57 unit SUBCUT BEDTIME 10/29/16 [History] Metoprolol Tartrate 25 mg PO BID 10/29/16 [History] Furosemide 40 mg PO BID #60 tablet 10/31/16 [Rx] Magnesium Oxide 400 mg PO BID #60 tablet 10/31/16 [Rx] Potassium Chloride [Klor-Con M20] 40 meq PO BID #120 tab.er 10/31/16 [Rx] Referrals: Yogesh Gutierrez PA [[facility]] - - Patient Data Vitals - Most Recent: Last Vital Signs Temp 98.1 F 10/31/16 11:20 Pulse 66 10/31/16 11:20 Resp 18 10/31/16 11:20 BP 113/85 10/31/16 11:20 Pulse Ox 95 10/31/16 11:20 Weight - Most Recent: 250 lb I&O - Last 24 hours: Intake & Output 10/30/16 10/31/16 10/31/16 22:59 06:59 14:59 Intake Total 480 600 640 Output Total 1550 1450 200 Balance -1070 -850 440 Lab Results - Last 24 hrs: Laboratory Results - last 24 hr 10/31/16 Range/Units 04:45 Sodium 141 (140-148) mmol/L Potassium 3.9 (3.6-5.2) mmol/L Chloride 105 (100-108) mmol/L Carbon Dioxide 29 (21-32) mmol/L Anion Gap 6.7 (5.0-14.0) mmol/L BUN 24 H (7-18) mg/dL Creatinine 1.3 (0.8-1.3) mg/dL Est Cr Clr Drug Dosing 51.15 mL/min Estimated GFR (MDRD) 55 L (>60) Glucose 121 H (74-106) mg/dL Calcium 8.4 L (8.5-10.1) mg/dL Magnesium 2.0 (1.8-2.4) mg/dL Med Orders - Current: Current Medications Acetaminophen (Tylenol) 650 mg PO Q4H PRN PRN Reason: Pain (Mild 1-3)/fever Last Admin: 10/31/16 06:57 Dose: 650 mg Atorvastatin Calcium (Lipitor) 80 mg PO BEDTIME [facility] Last Admin: 04/05/17 20:59 Dose: 80 mg Dextrose (Glutose 15) 15 gm PO ONETIME PRN PRN Reason: Hypoglycemia Dextrose/Water (Dextrose 50% In Water) 50 ml IV ONETIME PRN PRN Reason: Hypoglycemia Docusate Sodium (Colace) 100 mg PO BID PRN PRN Reason: Constipation Enoxaparin Sodium (Lovenox) 40 mg SUBCUT DAILY [facility] Last Admin: 10/31/16 08:27 Dose: 40 mg Fluticasone Propionate (Flonase) 0 gm RADHA DAILY [facility] Last Admin: 10/31/16 08:26 Dose: 2 spray Furosemide (Lasix) 20 mg IVPUSH Q8H [facility] Last Admin: 10/31/16 10:18 Dose: 20 mg Insulin Aspart (Novolog) 12 unit SUBCUT ACLUNCH [facility] Last Admin: 10/31/16 11:35 Dose: 12 units Insulin Aspart (Novolog) 15 unit SUBCUT ACDINNER [facility] Last Admin: 10/30/16 17:11 Dose: 15 units Insulin Aspart (Novolog) 12 unit SUBCUT ACBREAKFAST [facility] Last Admin: 10/31/16 08:30 Dose: 12 units Insulin Aspart (Novolog) 0 unit SUBCUT ASDIRECTED [facility] PRN Reason: Protocol Last Admin: 10/31/16 08:31 Dose: 1 unit Insulin Detemir (Levemir) 57 unit SUBCUT BEDTIME [facility] Last Admin: 10/30/16 20:57 Dose: 57 unit Loperamide HCl (Imodium) 4 mg PO DAILY PRN PRN Reason: LOOSE STOOL Last Admin: 10/30/16 15:28 Dose: 4 mg Losartan Potassium (Cozaar) 100 mg PO BID [facility] Last Admin: 10/31/16 08:30 Dose: 100 mg Magnesium Hydroxide (Milk Of Magnesia) 30 ml PO Q12H PRN PRN Reason: Constipation Magnesium Oxide (Magnesium Oxide) 400 mg PO BID [facility] Last Admin: 10/31/16 08:27 Dose: 400 mg Metoprolol Tartrate (Lopressor) 25 mg PO BID [facility] Last Admin: 10/31/16 08:28 Dose: 25 mg Ondansetron HCl (Zofran) 4 mg IV Q4H PRN PRN Reason: Nausea/Vomiting Oxycodone HCl (Oxycodone) 5 mg PO Q4H PRN PRN Reason: Pain (moderate 4-6) Polyethylene Glycol (Miralax) 17 gm PO DAILY PRN PRN Reason: Constipation Potassium Chloride (Klor-Con M20) 40 meq PO BID [facility] Last Admin: 10/31/16 08:27 Dose: 40 meq Sodium Chloride (Saline Flush) 10 ml FLUSH ASDIRECTED PRN PRN Reason: Keep Vein Open Last Admin: 10/31/16 02:05 Dose: 10 ml Discontinued Medications Furosemide (Lasix) 60 mg IVPUSH ONETIME ONE Stop: 10/29/16 01:41 Last Admin: 10/29/16 01:49 Dose: 60 mg Potassium Chloride (Klor-Con M20) 20 meq PO ONETIME ONE Stop: 10/29/16 06:11 Last Admin: 10/29/16 06:18 Dose: 20 meq Potassium Chloride (Klor-Con M20) 40 meq PO ONETIME ONE Stop: 10/29/16 09:31 Last Admin: 10/29/16 09:51 Dose: 40 meq Sodium Chloride (Saline Flush) 10 ml FLUSH ASDIRECTED PRN PRN Reason: Keep Vein Open Last Admin: 10/29/16 01:56 Dose: 10 ml *Q Meaningful Use (DIS) - VTE *Q VTE Criteria *Q: - Stroke *Q Stroke Criteria *Q: - AMI *Q AMI Criteria *Q:
--- NOTE | 2016-11-04 08:02 | ECHO ---
REFERRING PRACTITIONER: 1. AO ROOT: 3.39. (NL = 2.0-3.7) 2. AORTIC VALVE EXCURSION: 3. LA: 5.3 CM (NL = 1.9-4.0) 4. RV: 4.43. (NL = .09-2.6) 5. LV LALA: 5.75 (NL = 3.5-5.7) 6. LV SYST: 4.66 (NL = 2.2-4.3) 7. FRACTIONAL SHORTENIN. (2542) 8. EJECTION FRACTION: 30% to 35%. (5075) 9. IVS: 1.44 (NL = 0.6-1.1) 10. LVPW: 1.42 (NL = 0.6 1.1) INDICATION: Pulmonary and peripheral edema. By 2D echo left ventricular function appears to be decreased consistent with estimated ejection fraction of 30% to 35%. There is global left ventricular hypokinesis. There is concentric left ventricular hypertrophy. There is no pericardial effusion identified on this study. The aortic root is within normal range for size. There is biatrial enlargement, enlargement of the right ventricle with preserved right ventricular function and borderline enlargement of the left ventricle. There is calcification of the aortic valve leaflet without impairment of leaflet motion. There is calcification of the mitral valve annulus. Valve, otherwise, appears to be structurally normal for age. Tricuspid and pulmonic valves appear to be structurally normal. By Doppler and color Doppler, estimated right ventricular pressure is 30 mmHg. There is mild tricuspid regurgitation and pulmonary insufficiency, and trace mitral regurgitation. IMPRESSION: 1. Decreased left ventricular function. Estimated ejection fraction of 30% to 35%. 2. Borderline left ventricular enlargement. 3. Concentric left ventricular hypertrophy. 4. Biatrial enlargement. 5. Right ventricular enlargement with preserved right ventricular function. 6. Aortic sclerosis without stenosis. 7. Mild tricuspid regurgitation and pulmonic insufficiency. 8. Trace mitral regurgitation. /[id number] MTDD
== END 2016-10-31 12:35 | disposition home or self-care (01) | DRG 291 ==
LOC: JP.ED 00:43 → JP.MS 09:02
PROVIDERS: ADMIT Hospitalist; ATTEND Hospitalist
DX: I13.0 Hypertensive heart and chronic kidney disease with heart failure and stage 1 through stage 4 chronic kidney disease, or unspecified chronic kidney disease (principal); I50.23 Acute on chronic systolic (congestive) heart failure; R60.1 Generalized edema; N18.3 Chronic kidney disease, stage 3 (moderate); Z79.4 Long term (current) use of insulin; E11.22 Type 2 diabetes mellitus with diabetic chronic kidney disease; R06.02 Shortness of breath; R60.9 Edema, unspecified; M79.89 Other specified soft tissue disorders; I25.10 Atherosclerotic heart disease of native coronary artery without angina pectoris; E78.00 Pure hypercholesterolemia, unspecified; H54.7 Unspecified visual loss; Z95.1 Presence of aortocoronary bypass graft; Z88.8 Allergy status to other drugs, medicaments and biological substances
CPT/HCPCS: 36415; 71010 ×2; 80053; 81001; 82550; 82962; 83880; 84132; 85025; 93005; 96374; 99285; A9270; J1940; J7050; 80048; 83735; 93010; 93306; 93306-26; 97162-GP; J1650

== ENCOUNTER 2017-10-14 05:27 | Inpatient (IN) | payer MEDICARE, BC ==
[2017-10-14] MEDS ORDERED: Acetaminophen 500 MG Tab PO ONE (05:30)
[2017-10-14] MEDS ORDERED: Bupivacaine 0.5%/EPINEPHrine 1:200,000 50 ML MDV ONE (06:50)
[2017-10-14] MEDS ORDERED: Meropenem 500 MG SDV ONE (06:50)
[2017-10-14] MEDS ORDERED: fentaNYL 250 MCG/5 ML SDV ONE (07:06)
[2017-10-14] MEDS ORDERED: Glycopyrrolate 0.2 MG/ML 5 ML MDV ONE (07:06)
[2017-10-14] MEDS ORDERED: Succinylcholine 200 MG/10 ML MDV ONE (07:06)
[2017-10-14] MEDS ORDERED: Ondansetron 4 MG/2 ML SDV ONE (07:06)
[2017-10-14] MEDS ORDERED: Dexamethasone 4 MG/ML SDV ONE (07:06)
[2017-10-14] MEDS ORDERED: Rocuronium 50 MG/5 ML Vial ONE (07:06)
[2017-10-14] MEDS ORDERED: Propofol 200 MG/20 ML SDV ONE (07:06)
[2017-10-14] MEDS ORDERED: Neostigmine Methylsulfate 1 MG/ML 5 ML Syringe ONE (07:06)
[2017-10-14] MEDS: Dextrose 5%-Lactated Ringers 1,000 ML IV SCH ×3 (07:14→18:22)
[2017-10-14] MEDS ORDERED: ceFAZolin 2 GM in Premix Bag 1 BAG IV ONE (07:45)
[2017-10-14] MEDS ORDERED: Ketamine 500 MG/5 ML MDV IV SCH (08:00)
[2017-10-14] MEDS ORDERED: Lidocaine 2% 100 MG/5 ML Syringe IVPUSH ONE (08:00)
[2017-10-14] MEDS ORDERED: Ropivacaine 60 ML, Dexamethasone 8 MG, EPINEPHrine 0.4 MG, Sodium Chloride 0.9% 17.6 ML NERVRT SCH ×4 (08:00)
[2017-10-14] MEDS ORDERED: Lactated Ringers 1,000 ML ONE (08:10)
[2017-10-14] MEDS ORDERED: Linezolid 200 MG/100 ML Bag IRR ONE (08:46)
[2017-10-14] MEDS ORDERED: Insulin Aspart 100 Units/ML 3 ML Pen SUBCUT ONE (09:42)
[2017-10-14] MEDS: Lidocaine 0.4%/D5W 2 GM/500 ML BAG IV SCH (10:38)
[2017-10-14] MEDS ORDERED: Glucose Gel 15 GM in 37.5 GM Tube PO PRN (11:05)
[2017-10-14] MEDS ORDERED: 50% Dextrose in Water 50 ML Syringe IVPUSH PRN (11:05)
[2017-10-14] MEDS ORDERED: Glucagon,Human Recombinant 1 MG Vial IM PRN (11:05)
[2017-10-14] MEDS ORDERED: Ondansetron 4 MG/2 ML SDV IV PRN (11:14)
[2017-10-14] MEDS ORDERED: Pseudoephedrine 30 MG Tab PO PRN (11:17)
[2017-10-14] MEDS ORDERED: Nitroglycerin 0.4 MG Tab.SL SL PRN (11:21)
[2017-10-14] MEDS: HYDROmorphone 2 MG Tab PO PRN ×3 (11:23→18:16)
[2017-10-14] MEDS ORDERED: ASA PO PRN (11:39)
[2017-10-14] MEDS ORDERED: CAFFEINE PO PRN (11:39)
[2017-10-14] MEDS: Acetaminophen 500 MG Tab PO SCH ×2 (13:04→18:16)
[2017-10-14] MEDS: ceFAZolin 2 GM in Premix Bag 1 BAG IV SCH (16:12)
[2017-10-14] MEDS: Furosemide 40 MG Tab PO SCH (16:12)
[2017-10-14] MEDS: Insulin Aspart 100 Units/ML 3 ML Pen SUBCUT PRN ×2 (16:23→21:50)
[2017-10-14] MEDS: Benzocaine/Cetylpyridinium/Menthol Lozenge MUCMEM PRN (20:16)
[2017-10-14] MEDS: Insulin Detemir 100 Units/ML 3 ML Pen SUBCUT SCH (21:48)
[2017-10-14] MEDS ORDERED: Lidocaine 2% Jelly 10 ML Urojet MUCMEM ONE (22:21)
[2017-10-14] MEDS: Tamsulosin 0.4 MG Cap.ER PO SCH (22:39)
[2017-10-15] MEDS: Lidocaine 0.4%/D5W 2 GM/500 ML BAG IV SCH (00:30)
[2017-10-15] MEDS: Acetaminophen 500 MG Tab PO SCH ×5 (00:32→23:13)
[2017-10-15] MEDS: ceFAZolin 2 GM in Premix Bag 1 BAG IV SCH ×2 (00:32→08:03)
[2017-10-15] MEDS: Dextrose 5%-Lactated Ringers 1,000 ML IV SCH (04:30)
[2017-10-15] MEDS ORDERED: Tamsulosin 0.4 MG Cap.ER PO ONE (06:49)
[2017-10-15] MEDS ORDERED: Dextrose 5%-Lactated Ringers 1,000 ML IV SCH (07:00)
[2017-10-15] MEDS: Spironolactone 25 MG Tab PO SCH (08:08)
[2017-10-15] MEDS: Metoprolol Succinate 50 MG Tab.ER PO SCH (08:08)
[2017-10-15] MEDS: Furosemide 40 MG Tab PO SCH ×2 (08:09→16:24)
[2017-10-15] MEDS: Losartan 50 MG Tab PO SCH (08:09)
[2017-10-15] MEDS: Clopidogrel 75 MG Tab PO SCH (08:09)
[2017-10-15] MEDS: Insulin Detemir 100 Units/ML 3 ML Pen SUBCUT SCH ×2 (08:09→21:24)
[2017-10-15] MEDS: Insulin Aspart 100 Units/ML 3 ML Pen SUBCUT PRN ×4 (08:11→21:23)
--- NOTE | 2017-10-15 08:13 | PN ---
DATE OF SERVICE: 10/15/2017 SUBJECTIVE: Monty is postop day #1. He had urinary retention yesterday of greater than 700 mL. Card catheter was inserted. Blood sugar was 296. Pain has been controlled. He is up ambulating. REVIEW OF SYSTEMS: Remainder of review of systems negative for any pertinent positives and negatives. OBJECTIVE: GENERAL: Monty Panda is a 72-year-old male. VITAL SIGNS: TPR is 98.4, 63, 20. Blood pressure 145/79. HEENT: Negative. NECK: Supple. HEART: Regular rate and rhythm. LUNGS: Clear. ABDOMEN: Dressing dry and intact. Abdominal binder is on. EXTREMITIES: Without peripheral edema. ASSESSMENT: Laparoscopic repair of incarcerated umbilical hernia with mesh, excision of peritoneal nodules and placement of Vicryl mesh for incarcerated umbilical hernia, cystic peritoneal nodule ruptured, and extensive intraabdominal adhesions. Date of surgery 10/14/2017. PLAN: 1. Flomax 0.4 mg, give 1 dose now and continue with the at bedtime dose. 2. Discontinue Card catheter at 0600 hours on 10/16/2017. 3. Decrease IV to 40 mL/h. 4. Good pulmonary toilet. 5. We will evaluate p.r.n. or in the a.m. Nelly Whitmore PA-C /[id number]
[2017-10-15] MEDS: Benzocaine/Cetylpyridinium/Menthol Lozenge MUCMEM PRN (16:40)
[2017-10-15] MEDS: Tamsulosin 0.4 MG Cap.ER PO SCH (21:23)
[2017-10-16] MEDS: Acetaminophen 500 MG Tab PO SCH ×2 (05:02→12:12)
[2017-10-16] MEDS: Clopidogrel 75 MG Tab PO SCH (08:42)
[2017-10-16] MEDS: Losartan 50 MG Tab PO SCH (08:42)
[2017-10-16] MEDS: Furosemide 40 MG Tab PO SCH (08:42)
[2017-10-16] MEDS: Spironolactone 25 MG Tab PO SCH (08:42)
[2017-10-16] MEDS: Metoprolol Succinate 50 MG Tab.ER PO SCH (08:43)
[2017-10-16] MEDS: Insulin Detemir 100 Units/ML 3 ML Pen SUBCUT SCH (08:44)
[2017-10-16] MEDS: Insulin Aspart 100 Units/ML 3 ML Pen SUBCUT PRN ×2 (08:44→11:41)
[2017-10-16 10:57] VITALS: BP 142/57
--- NOTE | 2017-10-16 11:14 | DISCH ---
ADMISSION DIAGNOSES: Umbilical hernia, hypertension, coronary artery disease, type 2 diabetes, chronic kidney disease, congestive heart failure, and obesity. DISCHARGE DIAGNOSES: Laparoscopic repair of incarcerated umbilical hernia with mesh, excision of peritoneal nodules and placement of Vicryl mesh for incarcerated umbilical hernia, cystic peritoneal nodule ruptured, and extensive intraabdominal adhesions. Date of surgery 10/14/2017. HISTORY: Monty Panda is a 72-year-old male with an umbilical hernia. After preoperative evaluation and discussion of possible risks and possible complications, the patient wished to proceed with surgical procedure. HOSPITAL COURSE: Monty had his surgery on 10/14/2017. He had urinary retention after surgery, had a catheter replaced. Blood sugars were monitored. Pain has been controlled. On postop day 2, his Card catheter was removed. He voided. Pain was well controlled, and he was able to be discharged to home. PHYSICAL EXAMINATION: GENERAL: Monty is a pleasant 72-year-old male, alert, orientated and height is 5 feet 8.11 inches. Weight is 256 pounds. TPR is 96.7, 59, 18, blood pressure 148/58. HEENT: Negative. NECK: Supple. HEART: Regular rate and rhythm. LUNGS: Clear. ABDOMEN: Incisions look good. He has a pressure dressing over umbilical hernia site. Abdominal binder has been on. EXTREMITIES: Without peripheral edema. DISPOSITION: Discharged to home. CONDITION: Stable and improving. FOLLOWUP APPOINTMENT: With Dr. Alexy Valero at [facility] on 10/22/2017 at 1 p.m. MEDICATIONS: Home medication: 1. Tylenol Extra Strength 1000 mg q.6 hours. 2. Dilaudid 2 mg 1 to 2 every 4 hours p.r.n. pain #30. 3. Flomax 0.4 mg at bedtime for one week, #7 given. 4. He is to resume his home medications of Anacin 400-32 mg one every 6 hours p.r.n. pain. 5. Plavix 75 mg oral daily. 6. EpiPen use as directed for allergies. 7. Flonase 2 sprays in each nostril daily. 8. Furosemide 40 mg twice daily. 9. Hemp oil 2 mL oral daily. 10.NovoLog 20 units subcu before dinner, NovoLog 20 units subcu before lunch, and NovoLog 20 units before breakfast. 11.Tresiba 70 units subcu daily. 12.Krill omega-3 oil one tablet oral daily. 13.Cozaar 100 mg oral daily. 14.Mag oxide 400 mg twice daily. 15.Metoprolol tartrate 200 mg oral daily. 16.Nitroglycerin 0.4 mg sublingual p.r.n. chest pain. 17.Klor-Con 40 mEq oral daily. 18.Sudafed 120 mg oral as directed. 19.Aldactone 25 mg oral daily. 20.Lipitor 80 mg oral at bedtime. DISCHARGE DIET: Usual diet as tolerated. Drink 8-10 glasses of water a day. ACTIVITY AND INSTRUCTIONS: As tolerated. No lifting greater than 10 pounds for 6 weeks[address]riving, do not drive on pain medication. May shower. Notify provider if any fever, increased pain, nausea, or vomiting. Keep site clean and dry. Wear abdominal binder for 6 weeks with pressure dressing over hernia site for 6 weeks. Use incentive spirometer 10 times every hour while awake.
--- NOTE | 2017-10-19 01:03 | OR ---
DATE OF PROCEDURE: 10/14/2017 PREOPERATIVE DIAGNOSIS: Incarcerated umbilical hernia. POSTOPERATIVE DIAGNOSES: 1. Incarcerated umbilical hernia. 2. Cystic peritoneal nodule. 3. Extensive intraabdominal adhesions. OPERATIVE PROCEDURES: Diagnostic laparoscopy with: 1. Repair of incarcerated umbilical hernia with mesh (33125). 2. Excision of peritoneal nodule (55283). 3. Placement of Vicryl mesh to displace small abdominal wall from underlying viscera to the limit recurrent adhesion formation (71072). ANESTHESIA: General. INDICATION FOR PROCEDURE: This is a 72-year-old presenting with a large incarcerated umbilical hernia. The plan is to proceed with a diagnostic laparoscopy, laparotomy if necessary, and repair of the hernia with mesh. Potential risks of the procedure were including infection, injury to underlying viscera, problems with the mesh becoming infected or the hernia recurring along with the remote possibility of cardiopulmonary, septic, or hemorrhagic complications leading to were discussed, and the patient wishes to proceed. DETAILS OF PROCEDURE: The patient was taken to the operating room and placed in the supine position. After general endotracheal anesthesia was induced, a Card catheter was inserted and the abdomen prepped and draped. In the left lateral mid abdomen, a transverse incision was made. The peritoneal cavity entered under direct vision with Optiview trocar, inflated to 15 mmHg pressure with CO2. Bilateral mid abdominal transverse abdominis plane blocks were then placed with direct visualization of the needle in the transverse abdominis plane bilaterally and injection of the standard solution on each side. Following this, 5 mm trocars were placed in the left upper quadrant as well as left lower quadrant, and then subsequently in the right lateral mid abdomen as well. At this point, the abdomen was inspected. The patient had quite extensive adhesions between the omentum, small bowel, and pelvic abdominal wall. These were taken down with a combination of scalpel dissection and blunt dissection. Once these were completed, the hernia was then addressed. The incarcerated omentum was gradually reduced. There was a cystic nodule. This was excised and measured around 1 cm, was removed through the trocar site with some attached omentum due to rupture and was sent as a separate specimen. Upon completion of reduction of the hernia, the omental contents appeared to be somewhat ischemic. These were then excised using Harmonic scalpel and delivered from the field in somewhat piecemeal fashion. At this point, a Ventralight ST mesh with the balloon positioning system was selected. This was a 20.3 cm circular mesh. After being soaked in antibiotic-containing saline solution, it was placed in intraperitoneal location. A small stab wound just below the umbilicus was made and the inflation catheter pulled up thus completing the balloon up to the abdominal wall. The balloon catheter was then injected with air inflating the balloon and the mesh was then affixed to the abdominal wall with 2 circumferential firings of the absorbable tacking screws. Once these were in place, the balloon catheter was deflated and withdrawn. Good fixation of the mesh in all areas was then confirmed. To limit recurrent adhesion formation, a 12-inch Vicryl mesh was then placed and apparently this was placed behind the bladder in the pelvis along the pelvic sidewalls and up against the abdominal wall including the area of the mesh placement, and at that point, no further problems noted. Trocars were removed. The fascia at the 12-mm camera port was closed with 0 Vicryl stitch and the skin with 4-0 Vicryl skin stitch. Dressing was applied and the patient was taken to the recovery room in satisfactory condition. Alexy Valero MD /[id number]
== END 2017-10-16 13:25 | disposition home or self-care (01) | DRG 336 ==
LOC: JP.SDS 05:27 → JP.SDSSCHI 05:27 → EDSTATUS 09:00 → JP.2SS 09:15
PROVIDERS: ADMIT Surgery; ATTEND Surgery
PROC: 0WUF4JZ Supplement Abdominal Wall with Synthetic Substitute, Percutaneous Endoscopic Approach (ICD-10-PCS; principal; 2017-10-14)
PROC: 3E0M45Z Introduction of Adhesion Barrier into Peritoneal Cavity, Percutaneous Endoscopic Approach (ICD-10-PCS; 2017-10-14)
PROC: 0DBW4ZX Excision of Peritoneum, Percutaneous Endoscopic Approach, Diagnostic (ICD-10-PCS; 2017-10-14)
PROC: 0DNU4ZZ Release Omentum, Percutaneous Endoscopic Approach (ICD-10-PCS; 2017-10-14)
PROC: 0DN84ZZ Release Small Intestine, Percutaneous Endoscopic Approach (ICD-10-PCS; 2017-10-14)
PROC: 0DNW4ZZ Release Peritoneum, Percutaneous Endoscopic Approach (ICD-10-PCS; 2017-10-14)
PROC: 3E0T3BZ Introduction of Anesthetic Agent into Peripheral Nerves and Plexi, Percutaneous Approach (ICD-10-PCS; 2017-10-14)
DX: K42.0 Umbilical hernia with obstruction, without gangrene (principal); I13.0 Hypertensive heart and chronic kidney disease with heart failure and stage 1 through stage 4 chronic kidney disease, or unspecified chronic kidney disease; I50.22 Chronic systolic (congestive) heart failure; E78.5 Hyperlipidemia, unspecified; I25.10 Atherosclerotic heart disease of native coronary artery without angina pectoris; Z95.1 Presence of aortocoronary bypass graft; Z79.4 Long term (current) use of insulin; I25.5 Ischemic cardiomyopathy; K66.0 Peritoneal adhesions (postprocedural) (postinfection); K66.8 Other specified disorders of peritoneum; R33.8 Other retention of urine; Z79.82 Long term (current) use of aspirin; Z88.8 Allergy status to other drugs, medicaments and biological substances; N18.9 Chronic kidney disease, unspecified; E11.22 Type 2 diabetes mellitus with diabetic chronic kidney disease; E66.9 Obesity, unspecified; Z68.38 Body mass index [BMI] 38.0-38.9, adult
CPT/HCPCS: 36415; 51702; 51798; 80053; 82962; 83735; 83880; 84100; 85027; 88302; 88305; 94762; A9270-GY; C1781; J0171; J0330; J0690; J1100; J2001; J2020; J2185; J2405; J2704; J2710; J2795; J3010; J7030; J7042; J7050; J7120

== ENCOUNTER 2017-11-12 12:20 | Emergency (ER) | payer MEDICARE, BC ==
[2017-11-12 13:05] VITALS: BP 126/72
--- NOTE | 2017-11-12 13:36 | EDM.PDOC ---
ED HPI GENERAL MEDICAL PROBLEM - General Chief Complaint: Allergic Reaction Stated Complaint: SWOLLEN LOWER LIP Time Seen by Provider: 11/12/17 13:12 Source of Information: Reports: Patient, RN Notes Reviewed History Limitations: Reports: No Limitations - History of Present Illness INITIAL COMMENTS - FREE TEXT/NARRATIVE: 72-year-old gentleman presents to emergency department today with complaint of lower lip swelling, he states is been going on for the last couple days he does admit to being under a lot of stress he does have some small ulcers and it is painful - Related Data Allergies Allergy/AdvReac Type Severity Reaction Status Date / Time UNA Inhibitors Allergy Unknown Rash Verified 11/12/17 12:59 Home Meds: Home Meds Losartan [Cozaar] 100 mg PO DAILY 12/09/14 [History] EPINEPHrine [Epipen 2-Merrick] 0.3 mg IM DAILY PRN 07/31/15 [History] atorvaSTATin [Lipitor] 80 mg PO BEDTIME 07/31/15 [History] Pseudoephedrine HCl [Sudafed] 120 mg PO ASDIRECTED 12/30/15 [History] Fluticasone Propionate [Flonase] 2 spray IN DAILY 10/29/16 [History] Insulin Aspart [NovoLOG] 20 unit SQ ACDINNER 10/29/16 [History] Insulin Aspart [NovoLOG] 20 unit SQ ACLUNCH 10/29/16 [History] Insulin Aspart [Novolog Flexpen] 20 unit SQ ACBREAKFAST 10/29/16 [History] Metoprolol Tartrate 200 mg PO DAILY 10/29/16 [History] Furosemide 40 mg PO BID #60 tablet 10/31/16 [Rx] Magnesium Oxide 400 mg PO BID #60 tablet 10/31/16 [Rx] Acetaminophen [Tylenol Extra Strength] 500 mg PO Q6HR PRN 10/10/17 [History] Aspirin/Caffeine [Anacin 400-32 mg Tablet] 1 tab PO Q6HR PRN 10/10/17 [History] Clopidogrel [Plavix] 75 mg PO DAILY 10/10/17 [History] Insulin Degludec [Tresiba Flextouch U-200] 70 unit SQ DAILY 10/10/17 [History] Nitroglycerin [Nitrostat] 0.4 mg SL ASDIRECTED PRN 10/10/17 [History] Potassium Chloride [Klor-Con M20] 40 meq PO DAILY 10/10/17 [History] Spironolactone [Aldactone] 25 mg PO DAILY 10/10/17 [History] Hemp Oil 2 ml PO DAILY 10/14/17 [History] Krill Oil/[place]-3/Dha/Epa [[place]-3 Krill Oil Softgel] 1 tab PO DAILY 10/14/17 [ History] Acetaminophen [Tylenol Extra Strength] 1,000 mg PO Q6H tablet 10/16/17 [Rx] HYDROmorphone [Dilaudid] 2 - 4 mg PO Q4H PRN #30 tablet 10/16/17 [Rx] Tamsulosin [Flomax] 0.4 mg PO BEDTIME #7 cap.er 10/16/17 [Rx] Past Medical History HEENT History: Reports: Cataract, Impaired Vision, Sinusitis Other HEENT History: wears glasses Cardiovascular History: Reports: Arrhythmia, Bypass, CAD, High Cholesterol, Hypertension, Stents Respiratory History: Reports: Intubation, Previous Gastrointestinal History: Reports: Diverticulosis, GERD, Hemorrhoids Genitourinary History: Reports: Diabetic Nephropathy Musculoskeletal History: Reports: Fracture Neurological History: Reports: Headaches, Chronic, Neuropathy, Peripheral Endocrine/Metabolic History: Reports: Diabetes, Type II, Obesity/BMI 30+ - Infectious Disease History Infectious Disease History: Reports: Chicken Pox, Measles - Past Surgical History HEENT Surgical History: Reports: Naso-Sinus Surgery, Other (See Below) Cardiovascular Surgical History: Reports: Coronary Artery Bypass, Coronary Artery Stent GI Surgical History: Reports: Colonoscopy, EGD, Hernia, Abdominal Male Surgical History: Reports: Vasectomy Social & Family History - Family History Cardiac: Reports: [place], [place] Neurological: Reports: Parkinson's Endocrine/Metabolic: Reports: Diabetes, type II Oncologic: Reports: Colon - Tobacco Use Smoking Status *Q: Never Smoker Second Hand Smoke Exposure: No - Caffeine Use Caffeine Use: Reports: Coffee - Alcohol Use Days Per Week of Alcohol Use: 3 Number of Drinks Per Day: 1 Total Drinks Per Week: 3 - Recreational Drug Use Recreational Drug Use: No Drug Use in Last 12 Months: No - Living Situation & Occupation Living situation: Reports: , with Spouse ED ROS ALLERGIC REACTION - Review of Systems Review Of Systems: See Below Constitutional: Reports: No Symptoms HEENT: Reports: Other (Lip swelling) Respiratory: Reports: No Symptoms Cardiovascular: Reports: No Symptoms ED EXAM GENERAL NO PERIP PULSE - Physical Exam Exam: See Below Text/Narrative:: Examination of mouth mucosa is moist and pink no erythema or exudate noted in soft palate tongue is midline uvula is midline and do appreciate some edema in the lower lip. There are small ulcers across the full border of the lip it is tender to the touch Exam Limited By: No Limitations General Appearance: Alert, WD/WN, No Apparent Distress Neck: Normal Inspection, Supple, Non-Tender, Full Range of Motion Respiratory/Chest: No Respiratory Distress Course - Vital Signs Last Recorded V/S: Last Vital Signs Temp 97.5 F 11/12/17 12:48 Pulse 62 11/12/17 12:48 Resp 19 11/12/17 12:48 BP 126/72 11/12/17 13:05 Pulse Ox 94 L 11/12/17 12:48 Departure - Departure Time of Disposition: 13:35 Disposition: Home, Self-Care 01 Condition: Good Clinical Impression: Herpes simplex - Discharge Information Referrals: Yogesh Gutierrez PA [Primary Care Provider] - Additional Instructions: Take full course of Valtrex, Please followup with your primary care provider in 3-5 days if not better, please call return to the emergency department with worsening of symptoms. - Assessment/Plan Plan: Assessment Acuity = acute Site and laterality = herpes simplex virus Etiology = probable type I Manifestations = none Location of injury = Home Lab values = none Plan Treatment with Valtrex 2 g every 12 hours 1 day follow-up with primary care in 3-5 days if no improvement This note was dictated using [employer] voice recognition software please call with any questions on syntax or jewel.
== END 2017-11-12 14:17 | disposition home or self-care (01) ==
LOC: JP.ED 12:20
DX: B00.9 Herpesviral infection, unspecified (principal); I25.810 Atherosclerosis of coronary artery bypass graft(s) without angina pectoris; Z95.1 Presence of aortocoronary bypass graft; E78.00 Pure hypercholesterolemia, unspecified; I10 Essential (primary) hypertension; E11.42 Type 2 diabetes mellitus with diabetic polyneuropathy; E11.21 Type 2 diabetes mellitus with diabetic nephropathy; E66.9 Obesity, unspecified; Z88.8 Allergy status to other drugs, medicaments and biological substances; Z79.899 Other long term (current) drug therapy; Z79.4 Long term (current) use of insulin
CPT/HCPCS: 99283

== ENCOUNTER 2017-11-22 13:52 | Emergency (ER) | payer MEDICARE, BC ==
[2017-11-22 14:21] VITALS: BP 115/64
--- NOTE | 2017-11-22 14:48 | EDM.PDOC ---
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 Onset: Gradual Severity: Mild Associated Symptoms: Reports: No Other Symptoms - Related Data Allergies Allergy/AdvReac Type Severity Reaction Status Date / Time UNA Inhibitors Allergy Unknown Rash Verified 11/22/17 14:22 Home Meds: Home Meds Losartan [Cozaar] 100 mg PO DAILY 12/09/14 [History] EPINEPHrine [Epipen 2-Merrick] 0.3 mg IM DAILY PRN 07/31/15 [History] atorvaSTATin [Lipitor] 80 mg PO BEDTIME 07/31/15 [History] Pseudoephedrine HCl [Sudafed] 120 mg PO ASDIRECTED 12/30/15 [History] Fluticasone Propionate [Flonase] 2 spray IN DAILY 10/29/16 [History] Insulin Aspart [Novolog Flexpen] 20 unit SQ ACBREAKFAST 10/29/16 [History] Metoprolol Tartrate 200 mg PO DAILY 10/29/16 [History] Furosemide 40 mg PO BID #60 tablet 10/31/16 [Rx] Magnesium Oxide 400 mg PO BID #60 tablet 10/31/16 [Rx] Acetaminophen [Tylenol Extra Strength] 500 mg PO Q6HR PRN 10/10/17 [History] Aspirin/Caffeine [Anacin 400-32 mg Tablet] 1 tab PO Q6HR PRN 10/10/17 [History] Clopidogrel [Plavix] 75 mg PO DAILY 10/10/17 [History] Insulin Degludec [Tresiba Flextouch U-200] 70 unit SQ DAILY 10/10/17 [History] Nitroglycerin [Nitrostat] 0.4 mg SL ASDIRECTED PRN 10/10/17 [History] Potassium Chloride [Klor-Con M20] 40 meq PO DAILY 10/10/17 [History] Spironolactone [Aldactone] 25 mg PO DAILY 10/10/17 [History] Hemp Oil 2 ml PO DAILY 10/14/17 [History] Krill Oil/[place]-3/Dha/Epa [[place]-3 Krill Oil Softgel] 1 tab PO DAILY 10/14/17 [ History] Acetaminophen [Tylenol Extra Strength] 1,000 mg PO Q6H tablet 10/16/17 [Rx] HYDROmorphone [Dilaudid] 2 - 4 mg PO Q4H PRN #30 tablet 10/16/17 [Rx] Past Medical History HEENT History: Reports: Cataract, Impaired Vision, Sinusitis Other HEENT History: wears glasses Cardiovascular History: Reports: Arrhythmia, Bypass, CAD, High Cholesterol, Hypertension, Stents Respiratory History: Reports: Intubation, Previous Gastrointestinal History: Reports: Diverticulosis, GERD, Hemorrhoids Genitourinary History: Reports: Chronic Renal Insuffiency, Diabetic Nephropathy Musculoskeletal History: Reports: Fracture Neurological History: Reports: Headaches, Chronic, Neuropathy, Peripheral Endocrine/Metabolic History: Reports: Diabetes, Type II, Obesity/BMI 30+ - Infectious Disease History Infectious Disease History: Reports: Herpes - Past Surgical History HEENT Surgical History: Reports: Naso-Sinus Surgery, Other (See Below) Cardiovascular Surgical History: Reports: Coronary Artery Bypass, Coronary Artery Stent GI Surgical History: Reports: Colonoscopy, EGD, Hernia, Abdominal Male Surgical History: Reports: Vasectomy Dermatological Surgical History: Reports: None Social & Family History - Family History Cardiac: Reports: [place], [place] Neurological: Reports: Parkinson's Endocrine/Metabolic: Reports: Diabetes, type II Oncologic: Reports: Colon - Tobacco Use Smoking Status *Q: Never Smoker Second Hand Smoke Exposure: No - Caffeine Use Caffeine Use: Reports: Coffee - Alcohol Use Days Per Week of Alcohol Use: 3 Number of Drinks Per Day: 1 Total Drinks Per Week: 3 - Recreational Drug Use Recreational Drug Use: No Drug Use in Last 12 Months: No - Living Situation & Occupation Living situation: Reports: , with Spouse ED ROS GENERAL - Review of Systems Review Of Systems: See Below Constitutional: Denies: Fever HEENT: Denies: Throat Pain Respiratory: Denies: Shortness of Breath GI/Abdominal: Denies: Nausea, Vomiting ED EXAM, SKIN/RASH Exam: See Below Exam Limited By: No Limitations General Appearance: Alert, No Apparent Distress Throat/Mouth: Other (Patient does have a small cluster of blistering lesions on the left lower lip with some surrounding swelling and tenderness) Respiratory/Chest: No Respiratory Distress Course - Vital Signs Last Recorded V/S: Last Vital Signs Temp 96.8 F 11/22/17 14:09 Pulse 60 11/22/17 14:09 Resp 16 11/22/17 14:09 BP 115/64 11/22/17 14:09 Pulse Ox 95 11/22/17 14:09 - Re-Assessments/Exams Free Text/Narrative Re-Assessment/Exam: 11/22/17 14:57 Patient does have recurring herpes simplex of the lower lip. He was given Famvir to take 500 mg 3 times a day for 5 days minimum. Return in 2-3 days if not improving satisfactorily. Departure - Departure Time of Disposition: 14:58 Disposition: Home, Self-Care 01 Condition: Good Clinical Impression: Herpes simplex - Discharge Information Instructions: Cold Sore, [id number] Referrals: Yogesh Gutierrez PA [Primary Care Provider] - Forms: ED Department Discharge Care Plan Goals: Take the famciclovir 3 times a day for 5 days. Repeat treatment if necessary. Return if not improving satisfactorily.
== END 2017-11-22 14:56 | disposition home or self-care (01) ==
LOC: JP.ED 13:52
DX: B00.1 Herpesviral vesicular dermatitis (principal); I25.810 Atherosclerosis of coronary artery bypass graft(s) without angina pectoris; E78.00 Pure hypercholesterolemia, unspecified; I10 Essential (primary) hypertension; Z95.1 Presence of aortocoronary bypass graft; E11.9 Type 2 diabetes mellitus without complications; Z79.899 Other long term (current) drug therapy; Z88.8 Allergy status to other drugs, medicaments and biological substances; Z79.4 Long term (current) use of insulin
CPT/HCPCS: 99283

== ENCOUNTER 2023-08-13 20:58 | Emergency (ER) | payer MEDICARE, BC ==
[2023-08-13] MEDS ORDERED: Sodium Chloride 0.9% 10 ML Syringe FLUSH PRN (21:52)
[2023-08-13] MEDS ORDERED: Sodium Chloride 0.9% 1,000 ML IV ONE (22:06)
[2023-08-13 22:14] LABS: BASOPHILS ABSOLUTE AUTO 0.03 K/uL (0.00-0.10); BASOPHILS PERCENT AUTO 0.3 % (0.1-1.3); EOSINOPHILS PERCENT AUTO 6.8 % (0.0-5.4); HEMATOCRIT 36.8 % (38.4-49.7); HEMOGLOBIN 11.6 g/dL (12.9-16.9); IMMATURE GRAN ABSOLUTE AUTO 0.03 K/uL (0.00-0.23); IMMATURE GRAN PERCENT AUTO 0.3 % (0.0-0.7); LYMPHOCYTES ABSOLUTE AUTO 1.37 K/uL (0.8-3.3); LYMPHOCYTES PERCENT AUTO 15.6 % (11.4-47.7); MEAN CORPUSCULAR HEMOGLOBIN 27.1 pg (31.6-35.5); MEAN CORPUSCULAR HGB CONC 31.5 g/dL (31.6-35.5); MONOCYTES ABSOLUTE AUTO 1.11 K/uL (0.20-0.90); MONOCYTES PERCENT AUTO 12.6 % (3.3-12.6); NEUTROPHILS ABSOLUTE AUTO 5.67 K/uL (1.0-7.6); NEUTROPHILS PERCENT AUTO 64.4 % (40.0-78.1); PLATELET COUNT,PLT 188 K/uL (130-375); RED BLOOD CELL COUNT 4.28 M/uL (4.14-5.76); WHITE BLOOD CELL COUNT,WBC 8.8 K/uL (3.2-11.0)
[2023-08-13] MEDS ORDERED: Atropine 0.4 MG/ML SDV IVPUSH ONE (22:25)
[2023-08-13 22:57] LABS: A/G RATIO 0.7 (1.2-2.2); ALANINE AMINOTRANSFERASE,ALT 32 U/L (12-78); ALBUMIN 2.9 g/dL (3.4-5.0); ALKALINE PHOSPHATASE 103 U/L (46-116); ASPARTATE AMNIOTRANSFERASE,AST 33 U/L (15-37); BILIRUBIN TOTAL 0.4 mg/dL (0.2-1.0); BLOOD UREA NITROGEN,BUN 39 mg/dL (7-18); CALCIUM 8.2 mg/dL (8.5-10.1); CARBON DIOXIDE,CO2 28 mmol/L (21-32); CHLORIDE,CL 102 mmol/L (100-108); CREATININE 2.5 mg/dL (0.8-1.3); EST CRCL DRUG DOSING (CG) 23.94 mL/min; ESTIMATED GFR 26 mL/min (>60); GLUCOSE RANDOM 88 mg/dL (74-106); PROTEIN TOTAL,TP 7.2 g/dL (6.4-8.2); SODIUM,NA 138 mmol/L (140-148)
[2023-08-13 23:11] LABS: MAGNESIUM 2.6 mg/dL (1.8-2.4); TROPONIN I HIGH SENSITIVITY 17.7 pg/mL (<=60.3)
[2023-08-13] MEDS ORDERED: Acetaminophen/HYDROcodone 325-5 MG Tab PO ONE (23:59)
[2023-08-14 00:15] LABS: AMORPHOUS SEDIMENT,URINE NOT SEEN; APPEARANCE,URINE CLOUDY (CLEAR); BACTERIA,URINE MODERATE; BILIRUBIN,URINE NEGATIVE (NEGATIVE); COLOR,URINE YELLOW (YELLOW); EPITHELIAL CELLS,URINE RARE; GLUCOSE,URINE NEGATIVE (NEGATIVE); KETONES,URINE NEGATIVE (NEGATIVE); LEUKOCYTE ESTERASE,URINE LARGE (NEGATIVE); MUCUS,URINE FEW; NITRITE,URINE NEGATIVE (NEGATIVE); OCCULT BLOOD,URINE TRACE-INTACT (NEGATIVE); PROTEIN,URINE NEGATIVE (NEGATIVE); RBC,URINE 0-5 (0-5); UROBILINOGEN,URINE 0.2 EU/dL (0.2-1.0); WBC,URINE >100 (0-5)
[2023-08-14] MEDS ORDERED: Sodium Chloride 0.9% 1,000 ML IV ONE (01:34)
[2023-08-14] MEDS ORDERED: cefTRIAXone 1 GM in Sodium Chloride 0.9% 50 ML IV ONE (01:34)
[2023-08-14] MEDS ORDERED: Sodium Chloride 0.9% 1,000 ML IV SCH (02:00)
[2023-08-14] MEDS ORDERED: 50% Dextrose in Water 50 ML Syringe IVPUSH ONE (02:22)
[2023-08-14 03:20] LABS: CORONAVIRUS COVID-19 NAA NEGATIVE (NEGATIVE); INFLUENZA A NAA NEGATIVE (NEGATIVE); INFLUENZA B NAA NEGATIVE (NEGATIVE); RESPIRATORY SYNCYTIAL VIR NAA NEGATIVE (NEGATIVE)
[2023-08-14] MEDS ORDERED: Atropine 0.1 MG/ML 10 ML Syringe IVPUSH STA (03:47)
[2023-08-14 05:06] VITALS: BP 91/70; PULSE 54
== END 2023-08-14 07:01 ==
LOC: JP.ED 20:58
DX: A41.9 Sepsis, unspecified organism (principal); N30.00 Acute cystitis without hematuria; I12.9 Hypertensive chronic kidney disease with stage 1 through stage 4 chronic kidney disease, or unspecified chronic kidney disease; N18.32 Chronic kidney disease, stage 3b; R00.1 Bradycardia, unspecified; I25.810 Atherosclerosis of coronary artery bypass graft(s) without angina pectoris; E78.00 Pure hypercholesterolemia, unspecified; K21.9 Gastro-esophageal reflux disease without esophagitis; E11.40 Type 2 diabetes mellitus with diabetic neuropathy, unspecified; E66.9 Obesity, unspecified; Z79.82 Long term (current) use of aspirin; Z79.899 Other long term (current) drug therapy; Z79.4 Long term (current) use of insulin; Z95.5 Presence of coronary angioplasty implant and graft; Z88.8 Allergy status to other drugs, medicaments and biological substances; Z68.41 Body mass index [BMI] 40.0-44.9, adult
CPT/HCPCS: 0241U; 36415; 80053; 81001; 83605; 83735; 84484; 85025; 87040; 87077; 87086; 87088; 87186; 93005; 93010; 96361; 96365; 96375; 96376; 99285; 99285-25; A9270-GY; J0461; J0696; J3490; J7030

== ENCOUNTER 2023-12-06 16:32 | Emergency (ER) | payer MEDICARE, BC ==
[2023-12-06] MEDS ORDERED: Naloxone 0.4 MG/ML SDV IVPUSH PRN (16:41)
[2023-12-06 16:54] VITALS: BP 116/56; PULSE 60
[2023-12-06 16:54] LABS: BASOPHILS PERCENT AUTO 0.2 % (0.1-1.3); EOSINOPHILS ABSOLUTE AUTO 0.26 K/uL (0.00-0.40); EOSINOPHILS PERCENT AUTO 2.8 % (0.0-5.4); HEMATOCRIT 35.8 % (38.4-49.7); HEMOGLOBIN 11.8 g/dL (12.9-16.9); IMMATURE GRAN ABSOLUTE AUTO 0.05 K/uL (0.00-0.23); IMMATURE GRAN PERCENT AUTO 0.5 % (0.0-0.7); LYMPHOCYTES ABSOLUTE AUTO 0.69 K/uL (0.8-3.3); LYMPHOCYTES PERCENT AUTO 7.4 % (11.4-47.7); MEAN CORPUSCULAR HEMOGLOBIN 27.2 pg (31.6-35.5); MEAN CORPUSCULAR VOLUME 82.5 fL (81.4-99.0); MONOCYTES ABSOLUTE AUTO 1.18 K/uL (0.20-0.90); MONOCYTES PERCENT AUTO 12.7 % (3.3-12.6); NEUTROPHILS ABSOLUTE AUTO 7.08 K/uL (1.0-7.6); NEUTROPHILS PERCENT AUTO 76.4 % (40.0-78.1); PLATELET COUNT,PLT 187 K/uL (130-375); RED BLOOD CELL COUNT 4.34 M/uL (4.14-5.76); WHITE BLOOD CELL COUNT,WBC 9.3 K/uL (3.2-11.0)
[2023-12-06] MEDS: HYDROmorphone 0.5 MG/0.5 ML Syringe IVPUSH PRN (17:02)
[2023-12-06] MEDS: Sodium Chloride 0.9% 1,000 ML IV ONE (17:03)
[2023-12-06 17:07] LABS: BASOPHILS ABSOLUTE AUTO 0.02 K/uL (0.00-0.10)
[2023-12-06 17:12] LABS: PROTHROMBIN TIME 10.3 sec (9.2-10.6)
[2023-12-06 17:16] LABS: A/G RATIO 0.5 (1.2-2.2); ALANINE AMINOTRANSFERASE,ALT 39 U/L (12-78); ALBUMIN 2.7 g/dL (3.4-5.0); ALKALINE PHOSPHATASE 119 U/L (46-116); ASPARTATE AMNIOTRANSFERASE,AST 28 U/L (15-37); BILIRUBIN TOTAL 0.8 mg/dL (0.2-1.0); BLOOD UREA NITROGEN,BUN 29 mg/dL (7-18); CALCIUM 8.9 mg/dL (8.5-10.1); CARBON DIOXIDE,CO2 23 mmol/L (21-32); CHLORIDE,CL 103 mmol/L (100-108); CREATININE 1.6 mg/dL (0.8-1.3); EST CRCL DRUG DOSING (CG) 37.41 mL/min; ESTIMATED GFR 44 mL/min (>60); GLUCOSE RANDOM 87 mg/dL (74-106); POTASSIUM,K 4.5 mmol/L (3.6-5.2); PROTEIN TOTAL,TP 7.9 g/dL (6.4-8.2); SODIUM,NA 137 mmol/L (140-148)
[2023-12-06 17:17] LABS: ANION GAP 15.5 mmol/L (5.0-14.0)
[2023-12-06] MEDS: Cephalexin 250 MG Cap PO ONE (18:51)
== END 2023-12-06 19:26 | disposition home or self-care (01) ==
LOC: JP.ED 16:32
DX: S42.401A Unspecified fracture of lower end of right humerus, initial encounter for closed fracture (principal); L03.113 Cellulitis of right upper limb; I12.9 Hypertensive chronic kidney disease with stage 1 through stage 4 chronic kidney disease, or unspecified chronic kidney disease; N18.9 Chronic kidney disease, unspecified; E78.00 Pure hypercholesterolemia, unspecified; I25.10 Atherosclerotic heart disease of native coronary artery without angina pectoris; K21.9 Gastro-esophageal reflux disease without esophagitis; E11.40 Type 2 diabetes mellitus with diabetic neuropathy, unspecified; Z91.048 Other nonmedicinal substance allergy status; Z79.899 Other long term (current) drug therapy; Z79.4 Long term (current) use of insulin; Z79.82 Long term (current) use of aspirin; Z95.1 Presence of aortocoronary bypass graft; Z95.5 Presence of coronary angioplasty implant and graft; W19.XXXA Unspecified fall, initial encounter
CPT/HCPCS: 36415; 73080; 80053; 80307; 83605; 84145; 85025; 85610; 96374; 99284; A9270; J1170; J7030

== ENCOUNTER 2023-12-08 09:13 | Emergency (ER) | payer MEDICARE, BC ==
[2023-12-08 09:36] VITALS: BP 128/64; PULSE 67
[2023-12-08] MEDS: fentaNYL 100 MCG/2 ML SDV IM ONE (11:03)
== END 2023-12-08 13:39 | disposition home or self-care (01) ==
LOC: JP.ED 09:13
DX: S52.021A Displaced fracture of olecranon process without intraarticular extension of right ulna, initial encounter for closed fracture (principal); Z88.8 Allergy status to other drugs, medicaments and biological substances; Z79.899 Other long term (current) drug therapy; I12.9 Hypertensive chronic kidney disease with stage 1 through stage 4 chronic kidney disease, or unspecified chronic kidney disease; E11.22 Type 2 diabetes mellitus with diabetic chronic kidney disease; N18.9 Chronic kidney disease, unspecified; I25.10 Atherosclerotic heart disease of native coronary artery without angina pectoris; E78.00 Pure hypercholesterolemia, unspecified; K21.9 Gastro-esophageal reflux disease without esophagitis; E11.42 Type 2 diabetes mellitus with diabetic polyneuropathy; Z95.5 Presence of coronary angioplasty implant and graft; Z86.19 Personal history of other infectious and parasitic diseases; Z79.4 Long term (current) use of insulin; Z79.84 Long term (current) use of oral hypoglycemic drugs; Z79.82 Long term (current) use of aspirin; W19.XXXA Unspecified fall, initial encounter
CPT/HCPCS: 73200; 96372; 99283; J3010

== ENCOUNTER 2024-05-14 07:45 | Emergency (ER) | payer MEDICARE, BC ==
[2024-05-14] MEDS: fentaNYL 100 MCG/2 ML SDV IM ONE (08:24)
[2024-05-14 08:37] LABS: BASOPHILS PERCENT AUTO 0.1 % (0.1-1.3); EOSINOPHILS PERCENT AUTO 0.1 % (0.0-5.4); HEMATOCRIT 42.6 % (38.4-49.7); HEMOGLOBIN 13.9 g/dL (12.9-16.9); IMMATURE GRAN PERCENT AUTO 0.7 % (0.0-0.7); LYMPHOCYTES ABSOLUTE AUTO 0.31 K/uL (0.8-3.3); LYMPHOCYTES PERCENT AUTO 2.2 % (11.4-47.7); MEAN CORPUSCULAR HEMOGLOBIN 28.7 pg (31.6-35.5); MEAN CORPUSCULAR HGB CONC 32.6 g/dL (31.6-35.5); MONOCYTES ABSOLUTE AUTO 1.28 K/uL (0.20-0.90); MONOCYTES PERCENT AUTO 9.2 % (3.3-12.6); NEUTROPHILS ABSOLUTE AUTO 12.21 K/uL (1.0-7.6); NEUTROPHILS PERCENT AUTO 87.7 % (40.0-78.1); PLATELET COUNT,PLT 157 K/uL (130-375); RED BLOOD CELL COUNT 4.84 M/uL (4.14-5.76); WHITE BLOOD CELL COUNT,WBC 13.9 K/uL (3.2-11.0)
[2024-05-14 08:41] LABS: BASOPHILS ABSOLUTE AUTO 0.01 K/uL (0.00-0.10); EOSINOPHILS ABSOLUTE AUTO 0.02 K/uL (0.00-0.40)
[2024-05-14 09:05] LABS: A/G RATIO 0.7 (1.2-2.2); ALANINE AMINOTRANSFERASE,ALT 33 U/L (12-78); ALBUMIN 3.3 g/dL (3.4-5.0); ALKALINE PHOSPHATASE 129 U/L (46-116); ASPARTATE AMNIOTRANSFERASE,AST 23 U/L (15-37); BLOOD UREA NITROGEN,BUN 34 mg/dL (7-18); CALCIUM 9.2 mg/dL (8.5-10.1); CARBON DIOXIDE,CO2 28 mmol/L (21-32); CHLORIDE,CL 101 mmol/L (100-108); CREATININE 1.8 mg/dL (0.8-1.3); EST CRCL DRUG DOSING (CG) 33.25 mL/min; ESTIMATED GFR 38 mL/min (>60); GLUCOSE RANDOM 243 mg/dL (74-106); POTASSIUM,K 4.9 mmol/L (3.6-5.2); PROTEIN TOTAL,TP 7.8 g/dL (6.4-8.2); SODIUM,NA 138 mmol/L (140-148); TROPONIN I HIGH SENSITIVITY 20.1 pg/mL (<=60.3)
[2024-05-14 09:16] LABS: ANION GAP 13.9 mmol/L (5.0-14.0)
[2024-05-14] MEDS: Acetaminophen 500 MG Tab PO ONE (09:47)
[2024-05-14 10:34] VITALS: BP 131/77; PULSE 71
[2024-05-14 10:57] LABS: APPEARANCE,URINE CLEAR (CLEAR); BILIRUBIN,URINE NEGATIVE (NEGATIVE); COLOR,URINE YELLOW (YELLOW); GLUCOSE,URINE 100 mg/dL (NEGATIVE); KETONES,URINE NEGATIVE (NEGATIVE); LEUKOCYTE ESTERASE,URINE NEGATIVE (NEGATIVE); NITRITE,URINE NEGATIVE (NEGATIVE); OCCULT BLOOD,URINE NEGATIVE (NEGATIVE); PROTEIN,URINE TRACE mg/dL (NEGATIVE); UROBILINOGEN,URINE 0.2 EU/dL (0.2-1.0)
[2024-05-14 11:10] LABS: AMORPHOUS SEDIMENT,URINE NOT SEEN; BACTERIA,URINE FEW; EPITHELIAL CELLS,URINE RARE; MUCUS,URINE RARE; RBC,URINE 0-5 (0-5)
== END 2024-05-14 12:47 | disposition home or self-care (01) ==
LOC: JP.ED 07:45
DX: M25.511 Pain in right shoulder (principal); I25.10 Atherosclerotic heart disease of native coronary artery without angina pectoris; I12.9 Hypertensive chronic kidney disease with stage 1 through stage 4 chronic kidney disease, or unspecified chronic kidney disease; N18.9 Chronic kidney disease, unspecified; E11.22 Type 2 diabetes mellitus with diabetic chronic kidney disease; E78.00 Pure hypercholesterolemia, unspecified; K21.9 Gastro-esophageal reflux disease without esophagitis; E66.9 Obesity, unspecified; Z68.41 Body mass index [BMI] 40.0-44.9, adult; Z79.4 Long term (current) use of insulin; Z79.899 Other long term (current) drug therapy; Z79.82 Long term (current) use of aspirin; Z91.048 Other nonmedicinal substance allergy status
CPT/HCPCS: 36415; 73030; 80053; 81001; 83605; 84484; 85025; 87086; 96372; 99284; A9270; J3010

== ENCOUNTER 2024-05-17 10:22 | Inpatient (IN) | payer MEDICARE, BC ==
[2024-05-17] MEDS ORDERED: Sodium Chloride 0.9% 10 ML Syringe FLUSH PRN ×2 (11:28→17:01)
[2024-05-17] MEDS: Sodium Chloride 0.9% 1,000 ML IV ONE ×2 (12:06→14:23)
[2024-05-17] MEDS: cefTRIAXone 2 GM in Sodium Chloride 0.9% 50 ML IV ONE (12:06)
[2024-05-17 12:07] LABS: BASOPHILS PERCENT AUTO 0.1 % (0.1-1.3); HEMATOCRIT 40.9 % (38.4-49.7); HEMOGLOBIN 13.4 g/dL (12.9-16.9); IMMATURE GRAN ABSOLUTE AUTO 0.09 K/uL (0.00-0.23); IMMATURE GRAN PERCENT AUTO 0.6 % (0.0-0.7); LYMPHOCYTES ABSOLUTE AUTO 0.42 K/uL (0.8-3.3); LYMPHOCYTES PERCENT AUTO 2.9 % (11.4-47.7); MEAN CORPUSCULAR HEMOGLOBIN 28.2 pg (31.6-35.5); MEAN CORPUSCULAR HGB CONC 32.8 g/dL (31.6-35.5); MEAN CORPUSCULAR VOLUME 86.1 fL (81.4-99.0); MONOCYTES ABSOLUTE AUTO 1.26 K/uL (0.20-0.90); MONOCYTES PERCENT AUTO 8.8 % (3.3-12.6); NEUTROPHILS ABSOLUTE AUTO 12.54 K/uL (1.0-7.6); NEUTROPHILS PERCENT AUTO 87.6 % (40.0-78.1); PLATELET COUNT,PLT 139 K/uL (130-375); RED BLOOD CELL COUNT 4.75 M/uL (4.14-5.76); WHITE BLOOD CELL COUNT,WBC 14.3 K/uL (3.2-11.0)
[2024-05-17] MEDS: HYDROmorphone 1 MG/ML Syringe IVPUSH ONE (12:07)
[2024-05-17 12:09] LABS: BASOPHILS ABSOLUTE AUTO 0.02 K/uL (0.00-0.10)
[2024-05-17 12:11] LABS: CORONAVIRUS COVID-19 NAA NEGATIVE (NEGATIVE); INFLUENZA A NAA NEGATIVE (NEGATIVE); INFLUENZA B NAA NEGATIVE (NEGATIVE); RESPIRATORY SYNCYTIAL VIR NAA NEGATIVE (NEGATIVE)
[2024-05-17 12:38] LABS: CALCIUM 9.1 mg/dL (8.5-10.1); EST CRCL DRUG DOSING (CG) 15.81 mL/min; POTASSIUM,K 4.6 mmol/L (3.6-5.2)
[2024-05-17 13:12] LABS: ANION GAP 20.6 mmol/L (5.0-14.0)
[2024-05-17 13:13] LABS: CREATININE 3.8 mg/dL (0.8-1.3)
[2024-05-17 13:14] LABS: LACTIC ACID 3.5 mmol/L (0.4-2.0)
[2024-05-17 13:14] LABS: C-REACTIVE PROTEIN 43.35 mg/dL (<0.50)
[2024-05-17 14:10] LABS: APPEARANCE,URINE SLIGHTLY CLOUDY (CLEAR); BILIRUBIN,URINE NEGATIVE (NEGATIVE); COLOR,URINE YELLOW (YELLOW); GLUCOSE,URINE NEGATIVE (NEGATIVE); KETONES,URINE NEGATIVE (NEGATIVE); LEUKOCYTE ESTERASE,URINE NEGATIVE (NEGATIVE); NITRITE,URINE NEGATIVE (NEGATIVE); OCCULT BLOOD,URINE MODERATE (NEGATIVE); PH,URINE 5.5 (5.0-8.0); PROTEIN,URINE 30 mg/dL (NEGATIVE); UROBILINOGEN,URINE 0.2 EU/dL (0.2-1.0)
[2024-05-17 14:23] LABS: WBC,URINE 0-5 (0-5)
[2024-05-17 14:24] LABS: AMORPHOUS SEDIMENT,URINE RARE; BACTERIA,URINE MANY; EPITHELIAL CELLS,URINE FEW; MUCUS,URINE FEW
[2024-05-17] MEDS: Doxycycline 100 MG in Sodium Chloride 0.9% 100 ML IV SCH (15:52)
[2024-05-17] MEDS: HYDROmorphone 0.5 MG/0.5 ML Syringe IVPUSH ONE (16:16)
[2024-05-17] MEDS ORDERED: 50% Dextrose in Water 50 ML Syringe IV PRN (17:01)
[2024-05-17] MEDS ORDERED: Glucose Gel 15 GM in 37.5 GM Tube PO PRN (17:01)
[2024-05-17] MEDS ORDERED: Albuterol/Ipratropium 3.0-0.5 MG/3 ML Neb Soln NEB PRN (17:01)
[2024-05-17] MEDS ORDERED: Albuterol 0.083% 2.5 MG/3 ML Neb Soln NEB PRN (17:01)
[2024-05-17] MEDS ORDERED: Non-Formulary Medication 1 Each (Aspirin/Acetaminophen/Caffeine [Excedrin Migraine Caplet] PO PRN (17:01)
[2024-05-17] MEDS ORDERED: Ondansetron 4 MG/2 ML SDV IV PRN (17:01)
[2024-05-17] MEDS: Insulin Lispro 100 Unit/ML 3 ML KwikPen SUBCUT SCH (17:36)
[2024-05-17] MEDS: Enoxaparin 30 MG/0.3 ML Syringe SUBCUT SCH (17:41)
[2024-05-17] MEDS ORDERED: ANACIN PO PRN (20:34)
[2024-05-17] MEDS: Sodium Chloride 0.9% 1,000 ML IV SCH (20:52)
[2024-05-17] MEDS: Pregabalin 75 MG Cap PO SCH (20:52)
[2024-05-17] MEDS: Magnesium Oxide 400 MG Tab PO SCH (20:53)
[2024-05-17] MEDS: atorvaSTATin 20 MG Tab PO SCH (20:53)
[2024-05-17] MEDS: Montelukast 10 MG Tab PO SCH (20:57)
[2024-05-17] MEDS: Acetaminophen/HYDROcodone 325-5 MG Tab PO PRN (21:00)
[2024-05-17] MEDS ORDERED: Non-Formulary Medication 1 Each (Pregabalin [Pregabalin] 150 MG Capsule) PO SCH (21:00)
[2024-05-17] MEDS: Metoprolol Succinate 25 MG Tab.ER PO SCH (21:14)
[2024-05-18 05:55] LABS: HEMATOCRIT 35.3 % (38.4-49.7); HEMOGLOBIN 11.9 g/dL (12.9-16.9); MEAN CORPUSCULAR HEMOGLOBIN 28.5 pg (31.6-35.5); MEAN CORPUSCULAR HGB CONC 33.7 g/dL (31.6-35.5); MEAN CORPUSCULAR VOLUME 84.4 fL (81.4-99.0); RED BLOOD CELL COUNT 4.18 M/uL (4.14-5.76); WHITE BLOOD CELL COUNT,WBC 11.7 K/uL (3.2-11.0)
[2024-05-18 06:06] LABS: CALCIUM 8.4 mg/dL (8.5-10.1); CREATININE 3.4 mg/dL (0.8-1.3); EST CRCL DRUG DOSING (CG) 17.6 mL/min; MAGNESIUM 2.4 mg/dL (1.8-2.4); POTASSIUM,K 4.2 mmol/L (3.6-5.2)
[2024-05-18 06:12] LABS: ANION GAP 18.2 mmol/L (5.0-14.0)
[2024-05-18] MEDS: Acetaminophen 325 MG Tab PO PRN (06:22)
[2024-05-18] MEDS: Saliva Substitute Oral Spray 120 ML Bottle MUCMEM PRN (06:22)
[2024-05-18] MEDS ORDERED: Saliva Substitute Oral Spray 120 ML Bottle MUCMEM PRN (07:23)
[2024-05-18] MEDS: Tamsulosin 0.4 MG Cap.ER PO SCH (08:46)
[2024-05-18] MEDS: Pantoprazole 40 MG Tab.CR PO SCH (08:46)
[2024-05-18] MEDS: Clopidogrel 75 MG Tab PO SCH (08:46)
[2024-05-18] MEDS: Fluticasone NASAL Spray 16 GM Bottle NASBOTH SCH (08:49)
[2024-05-18] MEDS: Insulin Glargine,Human Rec. Analog 100 Units/ML 3 ML Pen SUBCUT SCH (08:52)
[2024-05-18] MEDS: cefTRIAXone 1 GM in Sodium Chloride 0.9% 50 ML IV SCH (11:05)
[2024-05-18] MEDS ORDERED: Vancomycin 1 GM SDV IV SCH (12:00)
[2024-05-19 05:55] LABS: CALCIUM 8.4 mg/dL (8.5-10.1); CREATININE 2.6 mg/dL (0.8-1.3); EST CRCL DRUG DOSING (CG) 23.02 mL/min; POTASSIUM,K 3.9 mmol/L (3.6-5.2); VANCOMYCIN RANDOM 8.7 ug/mL (0.0-50.0)
[2024-05-19 05:56] LABS: ANION GAP 15.9 mmol/L (5.0-14.0)
[2024-05-19 05:57] LABS: HEMATOCRIT 33.9 % (38.4-49.7); HEMOGLOBIN 11.5 g/dL (12.9-16.9); MEAN CORPUSCULAR HEMOGLOBIN 28.4 pg (31.6-35.5); MEAN CORPUSCULAR HGB CONC 33.9 g/dL (31.6-35.5); MEAN CORPUSCULAR VOLUME 83.7 fL (81.4-99.0); RED BLOOD CELL COUNT 4.05 M/uL (4.14-5.76)
[2024-05-19] MEDS: Calcitriol 0.25 MCG Cap PO SCH (08:07)
[2024-05-20 05:44] LABS: CALCIUM 8.9 mg/dL (8.5-10.1); CREATININE 2.1 mg/dL (0.8-1.3); EST CRCL DRUG DOSING (CG) 28.5 mL/min; POTASSIUM,K 3.8 mmol/L (3.6-5.2)
[2024-05-20 05:46] LABS: ANION GAP 15.8 mmol/L (5.0-14.0)
[2024-05-20] MEDS: Polyethylene Glycol 3350 Powder 17 GM Packet PO PRN (06:31)
[2024-05-20] MEDS: Furosemide 40 MG Tab PO SCH (09:23)
[2024-05-20] MEDS: Spironolactone 25 MG Tab PO SCH (09:23)
[2024-05-20] MEDS: Polyethylene Glycol 3350 Powder 17 GM Packet PO ONE (11:32)
[2024-05-20] MEDS ORDERED: ceFAZolin 2 GM in Sodium Chloride 0.9% 50 ML IV SCH (14:00)
[2024-05-20] MEDS: ceFAZolin 2 GM in Premix Bag 1 BAG IV SCH (15:40)
[2024-05-20] MEDS: Bisacodyl 5 MG Tab PO ONE (21:21)
[2024-05-21 06:03] LABS: EST CRCL DRUG DOSING (CG) 29.93 mL/min; POTASSIUM,K 3.7 mmol/L (3.6-5.2)
[2024-05-21 06:13] LABS: ANION GAP 13.7 mmol/L (5.0-14.0)
[2024-05-21] MEDS ORDERED: Sodium Phosphate,Monobasic/Sodium Phosphate,Dibasic Enema 133 ML Bottle RECTAL PRN (12:18)
[2024-05-21] MEDS: ceFAZolin 2 GM in Premix Bag 1 BAG IV SCH (13:22)
[2024-05-21] MEDS: Polyethylene Glycol 3350 Powder 17 GM Packet PO ONE (13:28)
[2024-05-21] MEDS: Bisacodyl 10 MG Supp RECTAL ONE (13:32)
[2024-05-21 17:04] VITALS: BP 142/99; PULSE 95
[2024-05-21] MEDS ORDERED: ceFAZolin 2 GM in Premix Bag 1 BAG IV SCH (23:00)
== END 2024-05-21 17:06 | DRG 193 ==
LOC: JP.ED 10:22 → JP.MS 14:37
PROVIDERS: ADMIT Hospitalist; ATTEND Hospitalist
DX: J18.9 Pneumonia, unspecified organism (principal); R09.02 Hypoxemia; J96.01 Acute respiratory failure with hypoxia; I10 Essential (primary) hypertension; I25.10 Atherosclerotic heart disease of native coronary artery without angina pectoris; N17.9 Acute kidney failure, unspecified; E87.20 Acidosis, unspecified; E11.9 Type 2 diabetes mellitus without complications; I13.0 Hypertensive heart and chronic kidney disease with heart failure and stage 1 through stage 4 chronic kidney disease, or unspecified chronic kidney disease; Z68.41 Body mass index [BMI] 40.0-44.9, adult; E86.0 Dehydration; Z66 Do not resuscitate; M19.90 Unspecified osteoarthritis, unspecified site; M25.511 Pain in right shoulder; E66.9 Obesity, unspecified; K21.9 Gastro-esophageal reflux disease without esophagitis; H54.7 Unspecified visual loss; N40.0 Benign prostatic hyperplasia without lower urinary tract symptoms; E78.00 Pure hypercholesterolemia, unspecified; E11.22 Type 2 diabetes mellitus with diabetic chronic kidney disease; E11.42 Type 2 diabetes mellitus with diabetic polyneuropathy; N18.32 Chronic kidney disease, stage 3b; R33.9 Retention of urine, unspecified; Z88.8 Allergy status to other drugs, medicaments and biological substances; Z95.1 Presence of aortocoronary bypass graft; Z79.4 Long term (current) use of insulin; Z98.52 Vasectomy status; Z95.5 Presence of coronary angioplasty implant and graft; Z79.82 Long term (current) use of aspirin; Z79.02 Long term (current) use of antithrombotics/antiplatelets; Z79.899 Other long term (current) drug therapy; Z98.890 Other specified postprocedural states
CPT/HCPCS: 0241U; 36415; 36569; 51701; 51702; 71045; 80048; 80202; 81001; 82947; 83605; 83735; 83880; 84145; 85025; 85027; 86140; 87040; 87077; 87086; 87186; 93005; 93306; 96361; 96365; 96375; 97110; 97161; 97165; 99285; 93010; 99222; 99232; 99238; A9270-GY; C1751; C1758; J0690; J0696; J1171; J1650; J1815; J1815-GY; J3490; J7030; J7050